=== PATIENT | male | born 1970 | race Two or more races ===

== ENCOUNTER 2024-08-31 19:02 | Inpatient (IN) | payer OTHER ==
[~2024-08-31] VITALS: Ht 185.4 cm; Wt 108.8 kg
[2024-08-31 20:27] LABS: Basophils # (auto) 0 10 ^3/uL (0-0.2); Basophils % (auto) 0.5 % (0.0-2.0); Eosinophils # (auto) 0.2 10 ^3/uL (0-0.8); Eosinophils % (auto) 3.1 % (0.0-7.0); Hematocrit 34.8 % (41.0-53.0); Hemoglobin 11.8 g/dL (13.5-17.5); Lymphocytes # (auto) 1.2 10 ^3/uL (0.4-5.4); Lymphocytes % (auto) 19.6 % (10.0-50.0); Mean Corpuscular Hemoglobin 29.3 pg (28.0-32.0); Mean Corpuscular Hgb Conc. 33.9 g/dL (32.0-36.0); Mean Corpuscular Volume 86.5 fL (80.0-100.0); Monocytes # (auto) 0.7 10 ^3/uL (0-1.3); Monocytes % (auto) 10.7 % (0.0-12.0); Neutrophils # (auto) 4.1 10 ^3/uL (1.6-8.6); Neutrophils % (auto) 66.1 % (37.0-80.0); Nucleated Red Blood Cells % 0.1 %; Platelet Count (auto) 269 10^3/uL (140-450); Red Blood Cells 4.03 10^6/uL (4.5-5.90); Red Cell Distribution Width 14.1 % (11.8-14.3); White Blood Cell 6.2 10^3/uL (4.4-10.8)
[2024-08-31 20:41] LABS: Alanine Aminotransferase 29 U/L (7-40); Albumin 4.4 g/dL (3.2-4.8); Alkaline Phosphatase 89 U/L (46-116); Anion Gap 7 (5-15); Aspartate Aminotransferase 19 U/L (13-40); BUN/Creatinine Ratio 17.2 (10.0-20.0); Bilirubin, Total 0.5 mg/dL (0.2-1.0); Blood Urea Nitrogen 21 mg/dL (9-23); Calcium 9.3 mg/dL (8.7-10.4); Carbon Dioxide 27 mmol/L (20-31); Potassium 4.3 mmol/L (3.5-5.1); Sodium 142 mmol/L (136-145); Total Protein 7.2 g/dL (5.7-8.2)
[2024-08-31 20:43] LABS: Chloride 108 mmol/L (98-107); Creatine Kinase IFCC 265 U/L (46-171); Glucose 257 mg/dL (74-106)
--- NOTE | 2024-08-31 20:44 | ED.PDOC ---
History of Present Illness HPI Comments 54 y/o M, with a history of DM, presents with c/o wound check, today. Patient endorses on having pain and swelling to his 1st and 3rd digit on her right foot for 1x month. He comments on recent amputation to 4th and 5th digit on his right foot at [facility] 2x months ago. He denies any recent injuries or skin contact exposure in addition to having any fever, chills, weakness, numbness, tingling, or other associated symptoms or modifiers at this time. Chief Complaint: Lower Extremity Time Seen by MD: 19:30 Reviewed Notes: Nurses Notes, Medications, Allergies Allergies: Coded Allergies: NO KNOWN ALLERGIES (Unverified , 08/31/24) Information Source: Patient Mode of Arrival: Ambulatory Severity: Moderate Timing: Months Duration: Since onset Prehospital treatment: None Past Medical History PAST MEDICAL HISTORY: DM, High Lipids, HTN Past Medical History (Other): obesity, peripheral neuropathy Surgical History: Denies all surgeries Family History Family History: Unknown Social History Smoker: Non-Smoker Alcohol: Denies ETOH Use Drugs: Denies Drug Use Lives In: Home Constitutional: reports: fatigue, fever; denies: chills, diaphoresis, malaise, sweats, weakness, others EENTM: denies: blurred vision, double vision, ear bleeding, ear discharge, ear drainage, ear pain, ear ringing, eye pain, eye redness, hearing loss, mouth pain, mouth swelling, nasal discharge, nose bleeding, nose congestion, nose pain, photophobia, tearing, throat pain, throat swelling, voice changes, others Respiratory: denies: cough, hemoptysis, orthopnea, SOB at rest, shortness of breath, SOB with excertion, stridor, wheezing, others Cardiovascular: denies: chest pain, dizzy spells, diaphoresis, Dyspnea on exertion, edema, irregular heart beat, left arm pain, lightheadedness, pal pitations, PND, syncope, others Gastrointestinal: denies: abdomen distended, abdominal pain, blood streaked bowels, constipated, diarrhea, dysphagia, difficulty swallowing, hematemesis, melena, nausea, poor appetite, poor fluid intake, rectal bleeding, rectal pain, vomiting, others Genitourinary: denies: burning, dysuria, flank pain, frequency, hematuria, incontinence, penile discharge, penile sore, pain, testicle pain, testicle swelling, urgency, others Neurological: denies: dizziness, fainting, headache, left sided numbness, left sided weakness, numbness, paresthesia, pre-existing deficit, right sided numbness, right sided weakness, seizure, speech problems, tingling, tremors, weakness, others Musculoskeletal: reports: others (pain and swelling to 1st and 3rd digit on right foot ); denies: back pain, gout, joint pain, joint swelling, muscle pain, muscle stiffness, neck pain Integumetry: reports: wounds (ulcer wound to 1st and 3rd digit on right foot ); denies: bruises, change in color, change in hair/nails, dryness, laceration, lesions, lumps, rash, others Allergic/Immunocompromised: denies: Difficulty Healing, Frequent Infections, Hives, Itching, others Hematologic/Lymphatic: denies: anemia, blood clots, easy bleeding, easy bruising, swollen glands, others Endocrine: denies: excessive hunger, excessive sweating, excessive thirst, excessive urination, flushing, intolerance to cold, intolerance to heat, unexplained weight gain, unexplained weight loss, others Psychiatric: denies: anxiety, bipolar disorder, depression, hopeless, panic disorder, schizophrenia, sleepless, suicidal, others All Other Systems: Reviewed and Negative (negative unless otherwise stated above or in HPI) Physical Exam General Appearance: No Apparent Distress, Obese HEENT: Normal ENT Inspection, Pharynx Normal, TMs Normal Neck: Full Range of Motion, Non-Tender, Normal, Normal Inspection Respiratory: Chest Non-Tender, Lungs Clear, No Accessory Muscle Use, No Respiratory Distress, Normal Breath Sounds Cardiovascular: No Edema, No JVD, No Murmur, No Gallop, Normal Peripheral Pulses, Regular Rate/Rhythm Breast Exam: Deferred Gastrointestinal: No Organomegaly, Non Tender, No Pulsatile Mass, Normal Bowel Sounds, Soft Genitalia: Deferred Pelvic: Deferred Rectal: Deferred Extremities: No calf tenderness, Normal capillary refill, Normal inspection, Normal range of motion, Non-tender, No pedal edema Musculoskeletal : Apperance: Normal Neurologic: Alert, conventional machinist II-XII nml as Tested, No Motor Deficits, Normal Affect, Normal Mood, No Sensory Deficits Cerebellar Function: Normal Reflexes: Normal Skin: Dry, Normal Color, Warm, Wounds (open ulcer wound with scant discharge to top portion of great and 3rd toe on right foot ) Lymphatic: No Adenopathy Was a procedure done? Was a procedure done?: No Differential Dx Considerations may include: cellulitis, dermatitis, post-op complication, osteomyelitis X-Ray, Labs, Meds, VS Vital Signs Date Time Temp Pulse Resp B/P (MAP) Pulse Ox O2 Delivery O2 Flow Rate FiO2 08/31/24 23:43 18 96 Room Air* 0 21 21 08/31/24 23:10 98.7 74 20 150/75 (100) 95 98.7 08/31/24 19:20 98.6 90 18 132/75 (94) 96 Lab Test 08/31/24 20:03 Range/Units White Blood Count 6.2 4.4-10.8 10^3/uL Red Blood Count 4.03 L 4.5-5.90 10^6/uL Hemoglobin 11.8 L 13.5-17.5 g/dL Hematocrit 34.8 L 41.0-53.0 % Mean Corpuscular Volume 86.5 80.0-100.0 fL Mean Corpuscular Hemoglobin 29.3 28.0-32.0 pg Mean Corpuscular Hemoglobin Concent 33.9 32.0-36.0 g/dL Red Cell Distribution Width 14.1 11.8-14.3 % Platelet Count 269 140-450 10^3/uL Mean Platelet Volume 7.1 6.9-10.8 fL Neutrophils (%) (Auto) 66.1 37.0-80.0 % Lymphocytes (%) (Auto) 19.6 10.0-50.0 % Monocytes (%) (Auto) 10.7 0.0-12.0 % Eosinophils (%) (Auto) 3.1 0.0-7.0 % Basophils (%) (Auto) 0.5 0.0-2.0 % Neutrophils # (Auto) 4.1 1.6-8.6 10 ^3/uL Lymphocytes # (Auto) 1.2 0.4-5.4 10 ^3/uL Monocytes # (Auto) 0.7 0-1.3 10 ^3/uL Eosinophils # (Auto) 0.2 0-0.8 10 ^3/uL Basophils # (Auto) 0 0-0.2 10 ^3/uL Nucleated Red Blood Cells 0.1 % Erythrocyte Sedimentation Rate 34 H 0-20 mm/hr Sodium Level 142 136-145 mmol/L Potassium Level 4.3 3.5-5.1 mmol/L Chloride Level 108 H 98-107 mmol/L Carbon Dioxide Level 27 20-31 mmol/L Anion Gap 7 5-15 Blood Urea Nitrogen 21 9-23 mg/dL Creatinine 1.22 0.700-1.30 mg/dL Glomerular Filtration Rate Calc 70 >90 mL/min BUN/Creatinine Ratio 17.2 10.0-20.0 Serum Glucose 257 H 74-106 mg/dL Calcium Level 9.3 8.7-10.4 mg/dL Total Bilirubin 0.5 0.2-1.0 mg/dL Aspartate Amino Transferase (AST) 19 13-40 U/L Alanine Aminotransferase (ALT) 29 7-40 U/L Alkaline Phosphatase 89 46-116 U/L Creatine Kinase 265 H 46-171 U/L Total Protein 7.2 5.7-8.2 g/dL Albumin 4.4 3.2-4.8 g/dL Current Medications Medications (Trade) Dose Ordered Sig/Tamiko Route Start Time Stop Time Status Last Admin Vancomycin HCl 250 ml @ 200 mls/hr ONCE ONCE IV 08/31/24 21:45 08/31/24 22:59 DC 08/31/24 23:29 X-Ray, Labs, Meds, VS Comment Patient to be admitted for cellulitis of the right foot. Concerned for possible osteomyelitis as it was bone degradation in the 1st and 3rd toe. Patient will be started on vancomycin and recommend podiatry consult tomorrow. I Laboratory: Labs reviewed and interpreted by this provider. Patient has prior medical visits reviewed. Med reconciliation performed Vital signs reviewed Time of 1ST Reevaluation: 20:00 Reevaluation 1ST: Unchanged Patient Education/Counseling: Diagnosis, Treatment Family Education/Counseling: No Family Present Departure 1 Departure Time of Disposition: 23:51 Impression: Primary Impression: Cellulitis of toe of right foot Disposition: ADMITTED INPATIENT Condition: Stable Discharged With: Self Critical Care Note Critical Care Time?: No Stability Stability form required: No Heart Score Heart Score: Heart Score Response (Comments) Value History N/A 0 EKG N/A 0 Age N/A 0 Risk Factors N/A 0 Troponin N/A 0 Total 0 I personally scribed for CARLOS ALBERTO LUND ([email or web address]) on 08/31/24 at 20:44. Electronically submitted by Taiwo Banegas ([email or web address]). CARLOS ALBERTO LUND Aug 31, 2024 20:44
[2024-08-31 21:34] LABS: Erythrocyte Sedimentation Rate 34 mm/hr (0-20)
--- NOTE | 2024-08-31 21:35 | DVH ---
EXAM: CT CT R FOOT WO CONTRAST INDICATION: WOUND EXAM DATE: 08/31/2024 08:19 PM COMPARISON: None TECHNIQUE: Multiple axial CT images of the right foot were obtained using bone algorithm. Axial and c oronal reformatting was done. Bone and soft tissue windows were reviewed. Radiation Dose Information: CT Dose: CTDI volume is 7.75 mGy. Dose-length product is 321.82 mGy*cm Findings/Impression: Limited evaluation given noncontrast technique. There is no evidence of an acute fracture, dislocation, blastic, or lytic lesions. Erosion of the 1st distal phalanx and focus of air in the 3rd PIP joint. Findings are nonspecific but could reflect an infectious etiology. Recommend a contrast enhanced MRI or nuclear medicine WBC scan for further evaluation. Transmetatarsectomy of the 4th and 5th digits. No radiopaque foreign bodies.
[2024-08-31] MEDS: VANCOMYCIN 1.25GM/250ML 250 ML IV ONE (23:29)
[2024-08-31 23:43] VITALS: RESP 18; O2SAT 96
[2024-09-01] MEDS ORDERED: ACETAMINOPHEN 325 MG TAB PO PRN (00:30)
[2024-09-01] MEDS ORDERED: VANCOMYCIN PER PHARMACY 0 MG IV SCH (00:30)
[2024-09-01] MEDS ORDERED: DEXTROSE (50%) 50ML SYRG IV PRN (00:30)
[2024-09-01] MEDS ORDERED: ONDANSETRON HCL 4 MG/2 ML VIAL IV PRN (00:30)
[2024-09-01] MEDS ORDERED: HYDROcodone-ACET 5/325MG TAB PO PRN (00:30)
[2024-09-01 02:18] VITALS: BP 145/77; PULSE 64; RESP 18; TEMP 97.7; O2SAT 100
--- NOTE | 2024-09-01 03:12 | DVHHP2 ---
History of Present Illness Reason for Visit: Right foot wound History of Present Illness 54-year-old male presents for evaluation of right foot wound. Patient reports a one month history of noticing swelling to his right foot great toe and 3rd toe. He states that over the past week he has noted an open wound at the tip of the great toe. Denies any trauma to the area. No fever or chills. No other acute complaints reported. Past Medical History Hypertension, dyslipidemia and diabetes mellitus Past Surgical History Right foot 4th and 5th toe amputation Family History Noncontributory Smoke: No ALCOHOL: none Drugs: None Lives: with Family Review of Systems Review of Systems Review of systems are currently negative otherwise addressed in HPI. Allergies: Coded Allergies: NO KNOWN ALLERGIES (Unverified , 08/31/24) Medications Current Medications Medications Dose Ordered Sig/Tamiko Route Start Time Stop Time Status Last Admin Dose Admin Vancomycin HCl 0 ml @ 0 mls/hr UD IV 09/01/24 00:30 UNV Ceftriaxone Sodium 50 ml @ 100 mls/hr DAILY@09 IV 09/01/24 09:00 Amlodipine Besylate 5 mg DAILY PO 09/01/24 10:00 Atorvastatin Calcium 10 mg HS PO 09/01/24 22:00 Empaglifozin 10 mg DAILY PO 09/01/24 10:00 Gabapentin 300 mg TID PO 09/01/24 06:00 Diagnostic Test (Pha) 1 strip Q6HR 09/01/24 06:00 Insulin Human Regular Q6HR SC 09/01/24 06:00 Dextrose 50 ml UD PRN IV 09/01/24 00:30 Acetaminophen/ Hydrocodone Bitart 1 tab Q4HP PRN PO 09/01/24 00:30 Ondansetron HCl 4 mg Q4HP PRN IV 09/01/24 00:30 Acetaminophen 650 mg Q6HP PRN PO 09/01/24 00:30 Exam Vital Signs Vital Signs Date Time Temp Pulse Resp B/P (MAP) Pulse Ox O2 Delivery O2 Flow Rate FiO2 08/31/24 23:43 18 96 Room Air* 0 21 21 08/31/24 23:10 98.7 74 150/75 (100) 98.7 Exam Gen: 54-year-old male in mild distress Skin: Warm, dry, normal color and texture, no rash. HEENT: Normocephalic atraumatic, mucous membranes moist and pink. Neck: Cervical and supraclavicular nodes normal without enlargement, trachea is midline, thyroid gland is normal without masses. Pulmonary: Clear to auscultation and percussion bilaterally. Cardiac: Regular rate and rhythm. No murmur Abdomen: Soft, nontender, nondistended, bowel sounds present all 4 quadrants, no guarding, no rigidity, no organomegaly. Extremities: No cyanosis, clubbing, right flank great toe ulcer Neuro: Cranial nerves II through XII grossly intact, normal affect and speech, no focal motor deficits. Labs/Xrays ORDERING PHYSICIAN: CARLOS ALBERTO LUND PROCEDURE(s): RFTCT - CT R FOOT WO CONTRAST REASON: WOUND ORDER NUMBER(s): [id number], ACCESSION NUMBER(s): [id number] EXAM: CT CT R FOOT WO CONTRAST INDICATION: WOUND EXAM DATE: 08/31/2024 08:19 PM COMPARISON: None TECHNIQUE: Multiple axial CT images of the right foot were obtained using bone algorithm. Axial and coronal reformatting was done. Bone and soft tissue windows were reviewed. Radiation Dose Information: CT Dose: CTDI volume is 7.75 mGy. Dose-length product is 321.82 mGy*cm Findings/Impression: Limited evaluation given noncontrast technique. There is no evidence of an acute fracture, dislocation, blastic, or lytic lesions. Erosion of the 1st distal phalanx and focus of air in the 3rd PIP joint. Findings are nonspecific but could reflect an infectious etiology. Recommend a contrast enhanced MRI or nuclear medicine WBC scan for further evaluation. Transmetatarsectomy of the 4th and 5th digits. No radiopaque foreign bodies. Labs Test 08/31/24 20:03 Range/Units White Blood Count 6.2 4.4-10.8 10^3/uL Red Blood Count 4.03 L 4.5-5.90 10^6/uL Hemoglobin 11.8 L 13.5-17.5 g/dL Hematocrit 34.8 L 41.0-53.0 % Mean Corpuscular Volume 86.5 80.0-100.0 fL Mean Corpuscular Hemoglobin 29.3 28.0-32.0 pg Mean Corpuscular Hemoglobin Concent 33.9 32.0-36.0 g/dL Red Cell Distribution Width 14.1 11.8-14.3 % Platelet Count 269 140-450 10^3/uL Mean Platelet Volume 7.1 6.9-10.8 fL Neutrophils (%) (Auto) 66.1 37.0-80.0 % Lymphocytes (%) (Auto) 19.6 10.0-50.0 % Monocytes (%) (Auto) 10.7 0.0-12.0 % Eosinophils (%) (Auto) 3.1 0.0-7.0 % Basophils (%) (Auto) 0.5 0.0-2.0 % Neutrophils # (Auto) 4.1 1.6-8.6 10 ^3/uL Lymphocytes # (Auto) 1.2 0.4-5.4 10 ^3/uL Monocytes # (Auto) 0.7 0-1.3 10 ^3/uL Eosinophils # (Auto) 0.2 0-0.8 10 ^3/uL Basophils # (Auto) 0 0-0.2 10 ^3/uL Nucleated Red Blood Cells 0.1 % Erythrocyte Sedimentation Rate 34 H 0-20 mm/hr Sodium Level 142 136-145 mmol/L Potassium Level 4.3 3.5-5.1 mmol/L Chloride Level 108 H 98-107 mmol/L Carbon Dioxide Level 27 20-31 mmol/L Anion Gap 7 5-15 Blood Urea Nitrogen 21 9-23 mg/dL Creatinine 1.22 0.700-1.30 mg/dL Glomerular Filtration Rate Calc 70 >90 mL/min BUN/Creatinine Ratio 17.2 10.0-20.0 Serum Glucose 257 H 74-106 mg/dL Calcium Level 9.3 8.7-10.4 mg/dL Total Bilirubin 0.5 0.2-1.0 mg/dL Aspartate Amino Transferase (AST) 19 13-40 U/L Alanine Aminotransferase (ALT) 29 7-40 U/L Alkaline Phosphatase 89 46-116 U/L Creatine Kinase 265 H 46-171 U/L Total Protein 7.2 5.7-8.2 g/dL Albumin 4.4 3.2-4.8 g/dL Assessment/Plan Assessment/Plan Assessment Right foot diabetic ulcer Uncontrolled diabetes mellitus Hypertension Plan Admit the patient to [facility] to the hospitalist Rocephin/vancomycin Podiatry consult Resume home medications Continue treatment per orders. Plan discussed with: Patient My Orders Orders - DONTAE CALI Procedure Category Date Status Time *Podiatry Consult CONS 09/01/24 Transmitted Erika/Trini 00:23 Vancomycin Per PHA 09/01/24 Pending Pharmacy 00:30 Ceftriaxone 1gm/50ml PHA 09/01/24 In Process D5w (Rocephin) 09:00 Amlodipine Tablet PHA 09/01/24 In Process (Norvasc Tablet) 10:00 Atorvastatin (Lipitor) PHA 09/01/24 In Process 22:00 Empagliflozin PHA 09/01/24 In Process (Jardiance) 10:00 Gabapentin Capsule PHA 09/01/24 In Process (Neurontin Capsule) 06:00 Consistent DIET 09/01/24 Transmitted Carb(Ccho)Diabetes Breakfast Glucose Blood PHA 09/01/24 In Process (Accu-Chek Comfort 06:00 Insulin R (Human) PHA 09/01/24 In Process (Insulin R) 06:00 Dextrose 50% Syringe PHA 09/01/24 In Process 00:30 Admit ADMIT 09/01/24 Transmitted 00:23 Hydrocodone-Acet PHA 09/01/24 In Process 5/325mg Tab (Toluca 00:30 Ondansetron Hcl PHA 09/01/24 In Process (Zofran) 00:30 Complete Blood Count LAB 09/02/24 Verified 04:00 Condition: Stable KAREL 09/01/24 In Process 00:23 Acetaminophen Tablet PHA 09/01/24 In Process (Tylenol Tablet) 00:30 Bedrest With Bathroom KAREL 09/01/24 In Process Privileg 00:23 Basic Metabolic Panel LAB 09/02/24 Verified 04:00 Date of Service: Sep 01, 2024 Billing Provider: DONTAE CALI Common Visit Codes: [id number] INP/OBS CARE (HIGH) DONTAE CALI Sep 01, 2024 03:12
[2024-09-01] MEDS: GABAPENTIN 300 MG CAP PO SCH (05:48)
[2024-09-01] MEDS: InsuLIN REG 1unit/0.01ml Soln (100units/ml) SC SCH (05:59)
[2024-09-01] MEDS: ACCU-CHEK COMFORT CURVE STRIP VI SCH (06:02)
[2024-09-01 08:42] LABS: Basophils # (auto) 0 10 ^3/uL (0-0.2); Basophils % (auto) 0.6 % (0.0-2.0); Eosinophils # (auto) 0.3 10 ^3/uL (0-0.8); Eosinophils % (auto) 5.4 % (0.0-7.0); Hematocrit 37.4 % (41.0-53.0); Hemoglobin 12.1 g/dL (13.5-17.5); Lymphocytes # (auto) 1.4 10 ^3/uL (0.4-5.4); Lymphocytes % (auto) 24.2 % (10.0-50.0); Mean Corpuscular Hemoglobin 28.2 pg (28.0-32.0); Mean Corpuscular Hgb Conc. 32.2 g/dL (32.0-36.0); Mean Corpuscular Volume 87.4 fL (80.0-100.0); Monocytes # (auto) 0.7 10 ^3/uL (0-1.3); Monocytes % (auto) 12.5 % (0.0-12.0); Neutrophils # (auto) 3.3 10 ^3/uL (1.6-8.6); Neutrophils % (auto) 57.3 % (37.0-80.0); Nucleated Red Blood Cells % 0.1 %; Platelet Count (auto) 253 10^3/uL (140-450); Red Blood Cells 4.29 10^6/uL (4.5-5.90); Red Cell Distribution Width 13.8 % (11.8-14.3); White Blood Cell 5.8 10^3/uL (4.4-10.8)
[2024-09-01 08:53] VITALS: BP 125/71; PULSE 66; RESP 16; TEMP 97.9; O2SAT 99
[2024-09-01 08:56] LABS: INR 1.06 (0.9-1.15); Partial Thromboplastin Time 27.3 SEC (24.5-34.5); Prothrombin Time 11.2 sec (9.3-11.8)
[2024-09-01 09:00] LABS: Alanine Aminotransferase 16 U/L (7-40); Alkaline Phosphatase 79 U/L (46-116); Anion Gap 5 (5-15); BUN/Creatinine Ratio 18.6 (10.0-20.0); Blood Urea Nitrogen 18 mg/dL (9-23); Calcium 9.1 mg/dL (8.7-10.4); Carbon Dioxide 28 mmol/L (20-31); Potassium 3.9 mmol/L (3.5-5.1); Sodium 141 mmol/L (136-145)
[2024-09-01] MEDS ORDERED: cefTRIAXone 1GM/50ML D5W 50 ML IV SCH (09:00)
[2024-09-01] MEDS: PIPERACILLIN-TAZOB 3.375GM 100 ML IV ONE (09:00)
[2024-09-01 09:01] LABS: Albumin 4.3 g/dL (3.2-4.8)
[2024-09-01 09:02] LABS: Bilirubin, Total 0.5 mg/dL (0.2-1.0); Total Protein 6.9 g/dL (5.7-8.2)
[2024-09-01 09:22] LABS: Aspartate Aminotransferase 13 U/L (13-40); Chloride 108 mmol/L (98-107); Glucose 184 mg/dL (74-106); Phosphorus 2.2 mg/dL (2.4-5.1)
[2024-09-01] MEDS: EMPAGLIFLOZIN 10 MG TAB PO SCH (09:40)
[2024-09-01] MEDS: amLODIPine BESYLATE 5 MG TAB PO SCH (09:40)
[2024-09-01] MEDS: VANCOMYCIN 1GM/250ML KIT 250 ML IV ONE (10:00)
--- NOTE | 2024-09-01 12:07 | DVH ---
Bilateral Lower Extremity Arterial Duplex Date: 09/01/2024 10:09 AM Clinical History: Rule out PAD Comparison: None Findings: Duplex Doppler evaluation including color Doppler and spectral/pulsed waveform analysis of the lower extremity arteries was performed. Velocities and waveforms within normal limits. IMPRESSION: There is no evidence for peripheral vascular insufficiency in the right lower extremity. There is no evidence for peripheral vascular insufficiency in the left lower extremity. No significant focal stenosis is identified. END IMPRESSION:
[2024-09-01 13:01] VITALS: BP 121/62; PULSE 63; RESP 12; TEMP 97.5; O2SAT 99
--- NOTE | 2024-09-01 13:51 | DVH ---
CLINICAL HISTORY: Rule out osteomyelitis. Wound. Infection. TECHNIQUE: Multi sequence multi planar MRI images of the right midfoot and forefoot were obtained wi thout IV contrast. COMPARISON: CT CT R FOOT WO CONTRAST on DOS: 08/31/24 FINDINGS: Postsurgical changes of prior amputations of the 4th and 5th metatarsals. Prominent subcut aneous edema in the great toe, suspected cellulitis in the appropriate clinical setting. There is mar row edema involving the entire distal phalanx of the great toe with bony destructive changes, suspect ed osteomyelitis in the setting of overlying soft tissue infection. No marrow signal abnormality seen in the proximal phalanx of the great toe. No organized fluid collection identified to suggest absces s, although limited evaluation for abscess on noncontrast enhanced exam. There are chronic appearing bony destructive changes of the 3rd metatarsal head and neck region and b ase of the proximal phalanx of the 3rd digit with hammertoe deformity of the 3rd digit. There is a wo und at the plantar aspect of the 3rd MTP joint without evidence for adjacent osteomyelitis. There is a wound at the dorsal aspect of the 3rd digit PIP joint with associated subcutaneous edema, likely c ellulitis. There is marrow edema in the distal aspect of the proximal phalanx, suspected osteomyeliti s. Possible marrow edema in the base of the middle phalanx of the 3rd digit, for which osteomyelitis is not excluded. Moderate arthritic changes of the 2nd MTP joint. IMPRESSION: 1. Suspected osteomyelitis in the distal phalanx of the great toe as described above. 2. Suspected osteomyelitis in the distal aspect of the proximal phalanx of the 3rd digit and possible osteomyelitis of the base of the middle phalanx of the 3rd digit. 3. Soft tissue inflammatory changes seen of the great toe and 3rd digit as described above, likely ce llulitis, without visualized focal fluid collection identified to suggest abscess, although limited e valuation for abscess noncontrast enhanced exam. 4. Additional findings as detailed above.
--- NOTE | 2024-09-01 14:27 | DVHINCON2 ---
Date Seen: Sep 01, 2024 Reason for Consultation Right foot wound History of Present Illness 54-year-old male presents for evaluation of right foot wound. Patient reports a one month history of noticing swelling to his right foot great toe and 3rd toe. He states that over the past week he has noted an open wound at the tip of the great toe. Denies any trauma to the area. No fever or chills. No other acute complaints reported. Past Medical History See H&P Past Surgical History See H&P Allergies: Coded Allergies: NO KNOWN ALLERGIES (Unverified , 08/31/24) Current Medications Current Medications Medications (Trade) Dose Ordered Sig/Tamiko Route PRN Reason Start Time Stop Time Status Last Admin Vancomycin HCl 0 ml @ 0 mls/hr UD IV 09/01/24 00:30 Ceftriaxone Sodium 50 ml @ 100 mls/hr DAILY@09 IV 09/01/24 09:00 09/01/24 08:59 DC Amlodipine Besylate (Norvasc Tablet) 5 mg DAILY PO 09/01/24 10:00 09/01/24 09:40 Atorvastatin Calcium (Lipitor) 10 mg HS PO 09/01/24 22:00 Empaglifozin (Jardiance) 10 mg DAILY PO 09/01/24 10:00 09/01/24 09:40 Gabapentin (Neurontin Capsule) 300 mg TID PO 09/01/24 06:00 09/01/24 05:48 Diagnostic Test (Pha) (Accu-Chek Comfort Curve T) 1 strip Q6HR 09/01/24 06:00 09/01/24 06:02 Insulin Human Regular (InsuLIN R) Q6HR SC 09/01/24 06:00 09/01/24 05:59 Dextrose 50 ml UD PRN IV Blood Sugar LESS THAN 60 09/01/24 00:30 Acetaminophen/ Hydrocodone Bitart (Alder 5/325MG Tab) 1 tab Q4HP PRN PO MODERATE PAIN (4-6 PAIN SCALE) 09/01/24 00:30 Ondansetron HCl (Zofran) 4 mg Q4HP PRN IV NAUSEA / VOMITING 09/01/24 00:30 Acetaminophen (Tylenol Tablet) 650 mg Q6HP PRN PO PAIN SCALE 1-3 OR TEMP>100.4 09/01/24 00:30 Piperacillin Sod/ Tazobactam Sod 100 ml @ 25 mls/hr Q8HR IV 09/01/24 17:00 Vancomycin HCl 250 ml @ 250 mls/hr Q8H IV 09/01/24 18:00 Vital Signs Vital Signs Date Time Temp Pulse Resp B/P (MAP) Pulse Ox O2 Delivery O2 Flow Rate FiO2 09/01/24 13:01 97.5 63 12 121/62 (81) 99 97.5 09/01/24 02:18 Room Air* 0 21 Physical Exam DERMATOLOGIC EXAM: - Skin is dry and cool to the touch dry bilaterally. - Nails 1-5 of the bilateral foot are thickened, discolored, dystrophic, and tender to palpate with subungual debris - Hair loss noted to bilateral feet - the right 3rd and hallux wound with fibrosis and cellulitis and drainage VASCULAR EXAM: - DP and PT pulses are palpable bilaterally. - CANE WEIGHER is brisk to all digits. - Feet are cool to touch compared to lower legs bilaterally. NEUROLOGIC EXAM: - Normal light touch sensation to the superficial peroneal, deep peroneal, sural, saphenous, and tibial nerve branches. - Protective sensation is diminished as tested with a 5.07 10g [place]-Faiza bilaterally. MUSCULOSKELETAL EXAM: - No gross deformities - Muscle strength is 5/5 and active motion is pain-free and symmetrical bilaterally - No pain or crepitation with passive range of motion bilaterally to all major pedal joints Labs/Diagnostic Data Labs Test 09/01/24 08:26 09/01/24 05:51 08/31/24 20:03 Range/Units White Blood Count 5.8 4.4-10.8 10^3/uL Red Blood Count 4.29 L 4.5-5.90 10^6/uL Hemoglobin 12.1 L 13.5-17.5 g/dL Hematocrit 37.4 L 41.0-53.0 % Mean Corpuscular Volume 87.4 80.0-100.0 fL Mean Corpuscular Hemoglobin 28.2 28.0-32.0 pg Mean Corpuscular Hemoglobin Concent 32.2 32.0-36.0 g/dL Red Cell Distribution Width 13.8 11.8-14.3 % Platelet Count 253 140-450 10^3/uL Mean Platelet Volume 6.7 L 6.9-10.8 fL Neutrophils (%) (Auto) 57.3 37.0-80.0 % Lymphocytes (%) (Auto) 24.2 10.0-50.0 % Monocytes (%) (Auto) 12.5 H 0.0-12.0 % Eosinophils (%) (Auto) 5.4 0.0-7.0 % Basophils (%) (Auto) 0.6 0.0-2.0 % Neutrophils # (Auto) 3.3 1.6-8.6 10 ^3/uL Lymphocytes # (Auto) 1.4 0.4-5.4 10 ^3/uL Monocytes # (Auto) 0.7 0-1.3 10 ^3/uL Eosinophils # (Auto) 0.3 0-0.8 10 ^3/uL Basophils # (Auto) 0 0-0.2 10 ^3/uL Nucleated Red Blood Cells 0.1 % Prothrombin Time 11.2 9.3-11.8 sec Prothrombin Time INR 1.06 0.9-1.15 Activated Partial Thromboplast Time 27.3 24.5-34.5 SEC Sodium Level 141 136-145 mmol/L Potassium Level 3.9 3.5-5.1 mmol/L Chloride Level 108 H 98-107 mmol/L Carbon Dioxide Level 28 20-31 mmol/L Anion Gap 5 5-15 Blood Urea Nitrogen 18 9-23 mg/dL Creatinine 0.97 0.700-1.30 mg/dL Glomerular Filtration Rate Calc 92 >90 mL/min BUN/Creatinine Ratio 18.6 10.0-20.0 Serum Glucose 184 H 74-106 mg/dL Hemoglobin A1c 6.3 H <5.7 % A1C Lactic Acid Level 1.3 0.4-2.0 mmol/L Calcium Level 9.1 8.7-10.4 mg/dL Phosphorus Level 2.2 L 2.4-5.1 mg/dL Magnesium Level 2.0 1.6-2.6 mg/dL Total Bilirubin 0.5 0.2-1.0 mg/dL Aspartate Amino Transferase (AST) 13 13-40 U/L Alanine Aminotransferase (ALT) 16 7-40 U/L Alkaline Phosphatase 79 46-116 U/L Creatine Kinase 228 H 46-171 U/L Total Protein 6.9 5.7-8.2 g/dL Albumin 4.3 3.2-4.8 g/dL Thyroid Stimulating Hormone (TSH) 1.59 0.55-4.78 uIU/mL POC Glucose 224 H 70-106 mg/dl Erythrocyte Sedimentation Rate 34 H 0-20 mm/hr Microbiology Date/Time Source Procedure Growth Status 08/31/24 20:00 Foot Gram Stain - Final Resulted 08/31/24 20:00 Foot Wound Culture Pending Resulted Problems(with codes): (1) Osteomyelitis of toe (2) Diabetic foot ulcer (3) Cellulitis of toe of right foot Plan/Recommendation ASSESSMENT: Patient is a 54 year old seen on the floor for a worsening ulcer PLAN: - The patients chart was reviewed, clinical findings were discussed with the patient, the etiologies of the conditions were discussed in detail, and a treatment plan was agreed to at this time, with both oral and written instructions provided. - reviewed advanced imaging - discussed plan is to perform an incision and drainage - patient will be NPO at midnight - take him to the OR tomorrow - we will get cultures in the OR - patient will need 6 weeks of IV antibiotics to keep the toes - can weightbear as tolerated in postoperative shoe All questions were answered and concerns addressed to the patient's satisfaction. The patient was given the phone number to the clinic and was told how to make contact with the clinic should any concerns or questions arise. Patient understands that if any questions or concerns arise prior to the next appointment, we should be contacted immediately. FOLLOW-UP: Continue to follow while inpatient Plan discussed with: Patient Date of Service: Sep 01, 2024 Billing Provider: LV GALVAN DPM Common Visit Codes: CONSULT ONLY Consultation Codes: [id number] CONSULT <80MIN LV GALVAN DPM Sep 01, 2024 14:27
[2024-09-01 15:32] LABS: Urine Bacteria None Seen /hpf (None Seen)
[2024-09-01 15:48] LABS: Urine Blood Negative /uL (Negative); Urine Clarity Clear (Clear); Urine Color Light-Yellow (Yellow); Urine Protein, UAD Negative (Negative); Urine Specific Gravity 1.029 (1.001-1.035); Urine Squamous Epithelial Cell None Seen /hpf (<5); Urine Urobilinogen Normal (Negative); Urine WBC < 1 /HPF (0-3)
[2024-09-01 16:01] LABS: Amphetamine Screen, Urine Neg (NEGATIVE); Barbiturate Scree,Urine Neg (NEGATIVE); Benzodiazephine Screen, Urine Neg (NEGATIVE); Cannabinoid Screen, Urine Neg (NEGATIVE); Cocaine Screen, Urine Neg (NEGATIVE); Opiate Scree,Urine Neg (NEGATIVE); Phencyclidine Screen, Urine Neg (NEGATIVE)
--- NOTE | 2024-09-01 16:15 | DVHPNRES ---
Progress Note Date Seen: Sep 01, 2024 Resident Creating Document: LAW ZAMBRANO RESIDENT Medical Necessity Reason Pt with a Central, PICC or Fol: No Subjective Review of Systems Salvador Jean-Baptiste 54-year-old male patient who presents to the ED for evaluation of right foot nonhealing wound which has occurred approximately three months ago, getting worse, associating with swelling and pain. Patient reports right foot 5th and 4th toe amputation approximately three months ago. Denies fever, chills, syncope, palpitation, trauma, nausea, vomiting, diarrhea, constipation, dysuria, recent travel, sick contacts and motor or sensory deficits. 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 Denies current tobacco, alcohol and other drug abuse Allergies: Denies Home medication: Empagliflozin 10 mg p.o. daily, aspirin 81 mg p.o. daily, atorvastatin 10 mg p.o. daily, losartan 25 mg p.o. daily Patient seen and examined at bedside. Continuous complaining of right leg swelling and mild pain of right foot. Has no other complaints. Objective vital signs Vital Sign Date Time Temp Pulse Resp B/P (MAP) Pulse Ox O2 Delivery O2 Flow Rate FiO2 09/01/24 13:01 97.5 63 12 121/62 (81) 99 97.5 09/01/24 02:18 Room Air* 0 21 Total Intake and Output 08/31/24 08/31/24 09/01/24 15:00 23:00 07:00 Intake Total 236 ml Balance 236 ml medications Current Medications Medications Dose Ordered Sig/Tamiko Route Start Time Stop Time Status Last Admin Dose Admin Vancomycin HCl 0 ml @ 0 mls/hr UD IV 09/01/24 00:30 Amlodipine Besylate 5 mg DAILY PO 09/01/24 10:00 09/01/24 09:40 5 MG Atorvastatin Calcium 10 mg HS PO 09/01/24 22:00 Empaglifozin 10 mg DAILY PO 09/01/24 10:00 09/01/24 09:40 10 MG Gabapentin 300 mg TID PO 09/01/24 06:00 09/01/24 05:48 300 MG Diagnostic Test (Pha) 1 strip Q6HR 09/01/24 06:00 09/01/24 06:02 1 STRIP Insulin Human Regular Q6HR SC 09/01/24 06:00 09/01/24 05:59 4 UNITS Dextrose 50 ml UD PRN IV 09/01/24 00:30 Acetaminophen/ Hydrocodone Bitart 1 tab Q4HP PRN PO 09/01/24 00:30 Ondansetron HCl 4 mg Q4HP PRN IV 09/01/24 00:30 Acetaminophen 650 mg Q6HP PRN PO 09/01/24 00:30 Piperacillin Sod/ Tazobactam Sod 100 ml @ 25 mls/hr Q8H IV 09/01/24 19:00 Vancomycin HCl 250 ml @ 250 mls/hr Q8H IV 09/01/24 18:00 Examination Patient lying in bed, in no acute distress General: Lucid, afebrile, mucosae are moist Cardiovascular: Normal S1 and S2. No murmurs, gallops or rubs Respiratory: Normal ventilation mechanics. Clear lung sounds on auscultation Abdomen: Soft, nontender, no organomegaly, normal bowel sounds MSK/skin: Mobilizes 4 limbs. Skin is dry and warm. She was surgical site on right foot of 4th and 5th toe amputation with no fluctuating mass, does present erythema. Necrotic ulcer and dorsum of hallux and 3rd toe. Presents weak pulses of right pedal and posterior tibial artery, rest of pulses within normal limits. Bilateral feet are warm to touch. Neurological: Oriented in 3 spheres. No motor no sensitive deficits. Pupils are isocoric and reactive laboratory and microbiology Laboratory Tests 09/01/24 08:26 Test 09/01/24 08:26 Range/Units Serum Glucose 184 H 74-106 mg/dL Microbiology Date/Time Source Procedure Growth Status 08/31/24 20:00 Foot Gram Stain - Final Resulted 08/31/24 20:00 Foot Wound Culture Pending Resulted Problem List/Assessment/Plan Problem List/Assessment/Plan # Diabetic foot complicated with osteomyelitis of 1st and 3rd right toe Completed CT and MRI of right foot, there is evidence of osteomyelitis in hallux and 3rd toe, also cellulitis. Podiatry on board: Planning to complete surgery on 09/02/2024, patient will need six weeks of IV antibiotics after surgery. Can weightbear as tolerated in postoperative shoe. We will obtain cultures from surgical sample Currently under empiric IV antibiotic (vancomycin and Zosyn) Obtain cultures (blood and wound), negative at the moment, pending final result. # Cellulitis of right foot Currently under empiric IV antibiotic (vancomycin and Zosyn) Obtain cultures (blood and wound), negative at the moment, pending final result. # Diabetes - controlled (hemoglobin A1c 6.3%) # Ruled out peripheral artery disease Completed lower limb ultrasound which ruled out PAD Patient is currently on atorvastatin and aspirin, we will continue home medication # Hypertension Continue home medication (losartan 25 mg p.o. daily) # Dyslipidemia Continue home medication (atorvastatin 10 mg p.o. daily) Goals of care discussed with patient for over 18 minutes: Full code status Discussed plan with Dr. Amado, patient and nurses: Currently patient is under empiric IV antibiotic. Podiatry evaluated the patient recommended surgery for 09/02/2024, we will obtain surgical sample for culture, and then adjust antibiotic regimen. Plan discussed with: Patient, Other (Nurses) My Orders My Orders Orders - LAW ZAMBRANO RESIDENT Procedure Category Date Status Time Drug Screen LAB 09/01/24 In Process 08:12 Mri R Foot Wo Contrast MRI 09/01/24 Resulted 08:14 Bilat Low Ext Art US 09/01/24 Resulted Duplex 08:14 Piperacillin-Tazob PHA 09/01/24 In Process 3.375gm (Zosyn 3.375g 19:00 *Podiatry Consult CONS 09/01/24 Transmitted Shahana([facility]) 14:04 Date of Service: Sep 01, 2024 Billing Provider: XIOMARA RESTREPO MD Common Visit Codes: [id number] INP/OBS CARE(HIGH) LAW ZAMBRANO RESIDENT Sep 01, 2024 16:15 XIOMARA RESTREPO MD Sep 07, 2024 15:51
[2024-09-01 17:13] VITALS: BP 127/74; PULSE 61; RESP 17; TEMP 98; O2SAT 100
[2024-09-01] MEDS: VANCOMYCIN 1GM/250ML KIT 250 ML IV SCH (18:12)
[2024-09-01] MEDS: PIPERACILLIN-TAZOB 3.375GM 100 ML IV SCH (19:00)
[2024-09-01] MEDS: POTASSIUM PHOSPHATE 22 MEQ in SODIUM CHL 0.9% 100 ML IV ONE (19:20)
[2024-09-01 21:00] VITALS: BP 149/79; PULSE 62; RESP 20; TEMP 97.5; O2SAT 100
[2024-09-01] MEDS: ATORVASTATIN 20 MG TAB PO SCH (21:40)
[2024-09-02] VITALS (9 sets, daily range): BP systolic 127–140; BP diastolic 71–80; PULSE 60–81; RESP 1–20; TEMP 97.6–98.7; O2SAT 93–100
[2024-09-02] MEDS: VANCOMYCIN 1GM/250ML KIT 250 ML IV SCH (04:05)
[2024-09-02 06:45] LABS: Basophils # (auto) 0 10 ^3/uL (0-0.2); Basophils % (auto) 0.7 % (0.0-2.0); Eosinophils # (auto) 0.3 10 ^3/uL (0-0.8); Eosinophils % (auto) 5.1 % (0.0-7.0); Hematocrit 36.1 % (41.0-53.0); Hemoglobin 11.7 g/dL (13.5-17.5); Lymphocytes # (auto) 1.6 10 ^3/uL (0.4-5.4); Lymphocytes % (auto) 27.2 % (10.0-50.0); Mean Corpuscular Hemoglobin 28.4 pg (28.0-32.0); Mean Corpuscular Hgb Conc. 32.6 g/dL (32.0-36.0); Mean Corpuscular Volume 87.4 fL (80.0-100.0); Monocytes # (auto) 0.7 10 ^3/uL (0-1.3); Monocytes % (auto) 11.5 % (0.0-12.0); Neutrophils # (auto) 3.3 10 ^3/uL (1.6-8.6); Neutrophils % (auto) 55.5 % (37.0-80.0); Nucleated Red Blood Cells % 0.1 %; Platelet Count (auto) 236 10^3/uL (140-450); Red Blood Cells 4.13 10^6/uL (4.5-5.90)
[2024-09-02 06:50] LABS: Potassium 3.7 mmol/L (3.5-5.1); Sodium 142 mmol/L (136-145)
[2024-09-02 06:51] LABS: Anion Gap 9 (5-15); Carbon Dioxide 25 mmol/L (20-31)
[2024-09-02 06:53] LABS: Chloride 108 mmol/L (98-107)
[2024-09-02 06:56] LABS: Glucose 99 mg/dL (74-106)
[2024-09-02 06:57] LABS: BUN/Creatinine Ratio 14.1 (10.0-20.0); Blood Urea Nitrogen 13 mg/dL (9-23)
[2024-09-02] MEDS: ASPirin 81 mg TAB PO SCH (10:00)
[2024-09-02] MEDS: LOSARTAN POTASSIUM 25 MG TAB PO SCH (10:07)
[2024-09-02] MEDS ORDERED: MEPERIDINE HCL (25 MG/ML) 1ML VIAL ONE (10:52)
[2024-09-02] MEDS ORDERED: MIDAZOLAM HCL 2MG/2ML 2ml VIAL (1mg/ml) ONE ×2 (10:52→11:46)
[2024-09-02] MEDS ORDERED: fentaNYL CITRATE 100 MCG/2 ML VL ONE ×2 (10:52→11:45)
[2024-09-02] MEDS: BUPIVACAINE 0.5% MPF INJ 30ML SDV IJ ONE (11:21)
[2024-09-02] MEDS ORDERED: DexAMETHasone SOD PHOS 10MG/1ML VIAL INJ ONE ×2 (11:40→11:46)
[2024-09-02] MEDS ORDERED: PROPOFOL 10 MG/ML 20 ML IV ONE ×2 (11:40→11:46)
--- NOTE | 2024-09-02 11:45 | DVHOP2 ---
Operative Report - 2 Report Details Date: 09/02/24 Preop Diagnosis: 1. Right foot third osteomyelitis 2. Right foot first osteomyelitis 3. Right foot diabetic ulcer 4. Right foot cellulitis 5. Right foot abscess Postop Diagnosis: Same as preop Surgeon: Lv Galvan MD Anesthesiologist: See anesthesia Anesthesia: Mac Consent: The patient was informed of the risks and benefits of the procedure. These include but are not limited to complications of anesthesia, postoperative infection, incomplete relief of symptoms, recurrence of symptoms, damage to blood vessels, nerves and tendons, deep venous thrombosis, pulmonary embolism and possible need for repeat surgery in the future. Complications: None Estimated Blood Loss: Minimal Fluids: See anesthesia Findings: Consistent with diagnosis Indications for Surgery: Worsening right foot wound Name of Procedure Performed 1. Right foot I&D to bone 3rd proximal phalanx (30629) 2. Right foot I&D to bone 1st proximal phalanx () 2. Right foot bone biopsy 3rd proximal phalanx () 3. Right foot bone biopsy 1st proximal phalanx () 4. Right foot 3rd toe flexor tenotomy (01591) 5. Right foot 1st toe flexor tenotomy (94244) 6. Right foot delayed closure (49160) Procedure Details Procedure Details: PRE-PROCEDURE INFORMATION: In the pre-op holding area, the extremity to be operated on was clearly marked and the patient verified correct laterality of the marking. The patient was transferred to the OR table and placed in a supine position. A timeout was performed in which identification of the correct patient, procedure, location, and materials was done. The right foot and leg were prepped and draped in normal sterile fashion. DESCRIPTION OF PROCEDURE: Attention was directed to the right 3rd toe where area of fluctuance was noted. An incision was made over this area and was deepened through blunt dissection. The incision was deepened to the level of abscess and bone. Care was taken to the dissection to avoid any neurovascular and tendinous structures. The incision was deepened to the bone, and the abscess appeared to be purulent fluid consistent with pus. The cortices of the bone was then removed with Wenceslao an all necrotic tissue. After the abscess was drained, the area was irrigated with 3 L normal saline using cysto tubing. Deep cultures were then obtained from the wound. A bone biopsy was then taken of the right proximal phalanx which was deepened to the muscle belly and tendons. The bone was then sent to pathology to determine the extent of osteomyelitis. The area was then inspected and any areas of tracking, especially along the tendons were also drained. A delayed closure was then performed using 2-0 nylon after was deemed appropriate with no longer concern for infection. Attention was directed to the right 1st toe where area of fluctuance was noted. An incision was made over this area and was deepened through blunt dissection. The incision was deepened to the level of abscess and bone. Care was taken to the dissection to avoid any neurovascular and tendinous structures. The incis ion was deepened to the bone, and the abscess appeared to be purulent fluid consistent with pus. The cortices of the bone was then removed with Wenceslao an all necrotic tissue. After the abscess was drained, the area was irrigated with 3 L normal saline using cysto tubing. Deep cultures were then obtained from the wound. The area was then inspected and any areas of tracking, especially along the tendons were also drained. A bone biopsy was then taken of the right 1st proximal phalanx which was deepened to the muscle belly and tendons. The bone was then sent to pathology to determine the extent of osteomyelitis. A delayed closure was then performed using 2-0 nylon after was deemed appropriate with no longer concern for infection. All surgical wounds were irrigated copiously with saline and closed in layers with the aforementioned suture material. A dry sterile dressing was placed on the surgical extremity. The patient was placed in a postop shoe POSTOPERATIVE INFORMATION: The patient tolerated the above noted procedure and anesthesia well and was transferred to the PACU with vital signs stable, and vascular status intact with capillary refill intact to all digits. Deep cultures were taken in the wounds were closed at this point. Would recommend that we send the patient home on 3 weeks of p.o. antibiotics vs 6 weeks IV antibiotics. The patient being transient would be okay if we did p.o. patient can be weight-bearing as tolerated in a postop shoe Specimen: Right 3rd proximal phalanx and 1st proximal phalanx Condition Good Disposition Still a Patient LV GALVAN DPM Sep 02, 2024 11:45
[2024-09-02] MEDS ORDERED: ONDANSETRON HCL 4 MG/2 ML VIAL ONE (11:46)
[2024-09-02] MEDS ORDERED: ePHEDrine SULFATE 50 MG/ML AMP ONE (11:46)
[2024-09-02] MEDS ORDERED: GLYCOPYRROLATE 0.2 MG/ML 1ML VIAL ONE (11:46)
[2024-09-02] MEDS ORDERED: LIDOCAINE 2% (LOCAL ANESTH.) PF 5ml SDV ONE (11:46)
--- NOTE | 2024-09-02 19:26 | DVHPNRES ---
Progress Note Date Seen: Sep 02, 2024 Resident Creating Document: LAW ZAMBRANO RESIDENT Medical Necessity Reason Pt with a Central, PICC or Fol: No Subjective Review of Systems Salvador Jean-Baptiste 54-year-old male patient who presents to the ED for evaluation of right foot nonhealing wound which has occurred approximately three months ago, getting worse, associating with swelling and pain. Patient reports right foot 5th and 4th toe amputation approximately three months ago. Denies fever, chills, syncope, palpitation, trauma, nausea, vomiting, diarrhea, constipation, dysuria, recent travel, sick contacts and motor or sensory deficits. 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 Denies current tobacco, alcohol and other drug abuse Allergies: Denies Home medication: Empagliflozin 10 mg p.o. daily, aspirin 81 mg p.o. daily, atorvastatin 10 mg p.o. daily, losartan 25 mg p.o. daily Patient seen and examined at bedside. He was seen during the a.m., patient was complaining of mild foot pain, pain management helping control his pain. Awaiting for surgery today. Objective vital signs Vital Sign Date Time Temp Pulse Resp B/P (MAP) Pulse Ox O2 Delivery O2 Flow Rate FiO2 09/02/24 16:54 98.7 81 1 131/71 (91) 98 98.7 09/02/24 11:58 Room Air 0 09/02/24 11:58 100 Total Intake and Output 09/01/24 09/01/24 09/02/24 15:00 23:00 07:00 Intake Total 250 ml Output Total 0 ml Balance 250 ml medications Current Medications Medications Dose Ordered Sig/Tamiko Route Start Time Stop Time Status Last Admin Dose Admin Vancomycin HCl 0 ml @ 0 mls/hr UD IV 09/01/24 00:30 Amlodipine Besylate 5 mg DAILY PO 09/01/24 10:00 09/02/24 10:07 5 MG Atorvastatin Calcium 10 mg HS PO 09/01/24 22:00 09/01/24 21:40 10 MG Empaglifozin 10 mg DAILY PO 09/01/24 10:00 09/01/24 09:40 10 MG Gabapentin 300 mg TID PO 09/01/24 06:00 09/02/24 13:58 300 MG Diagnostic Test (Pha) 1 strip Q6HR 09/01/24 06:00 09/02/24 17:33 1 STRIP Insulin Human Regular Q6HR SC 09/01/24 06:00 09/02/24 17:34 3 UNITS Dextrose 50 ml UD PRN IV 09/01/24 00:30 Acetaminophen/ Hydrocodone Bitart 1 tab Q4HP PRN PO 09/01/24 00:30 Ondansetron HCl 4 mg Q4HP PRN IV 09/01/24 00:30 Acetaminophen 650 mg Q6HP PRN PO 09/01/24 00:30 Piperacillin Sod/ Tazobactam Sod 100 ml @ 25 mls/hr Q8H IV 09/01/24 19:00 09/02/24 14:00 25 MLS/HR Aspirin 81 mg DAILY PO 09/02/24 10:00 Losartan Potassium 25 mg DAILY PO 09/02/24 10:00 09/02/24 10:07 25 MG Vancomycin HCl 250 ml @ 250 mls/hr Q8H IV 09/02/24 04:00 09/02/24 12:29 250 MLS/HR Examination Patient was examined before surgery today Patient lying in bed, in no acute distress General: Lucid, afebrile, mucosae are moist Cardiovascular: Normal S1 and S2. No murmurs, gallops or rubs Respiratory: Normal ventilation mechanics. Clear lung sounds on auscultation Abdomen: Soft, nontender, no organomegaly, normal bowel sounds MSK/skin: Mobilizes 4 limbs. Skin is dry and warm. She was surgical site on right foot of 4th and 5th toe amputation with no fluctuating mass, does present erythema. Necrotic ulcer and dorsum of hallux and 3rd toe. Presents weak pulses of right pedal and posterior tibial artery, rest of pulses within normal limits. Bilateral feet are warm to touch. Neurological: Oriented in 3 spheres. No motor no sensitive deficits. Pupils are isocoric and reactive laboratory and microbiology Laboratory Tests 09/02/24 05:24 Test 09/02/24 05:24 Range/Units Serum Glucose 99 74-106 mg/dL Microbiology Date/Time Source Procedure Growth Status 08/31/24 20:03 Blood Blood Culture - Preliminary NO GROWTH AFTER 24 HOURS OF INCUBATION. Resulted 08/31/24 20:00 Foot Gram Stain - Final Resulted 08/31/24 20:00 Foot Wound Culture - Preliminary Resulted Problem List/Assessment/Plan Problem List/Assessment/Plan # Diabetic foot complicated with osteomyelitis of 1st and 3rd right toe Completed CT and MRI of right foot, there is evidence of osteomyelitis in hallux and 3rd toe, also cellulitis. Podiatry on board: Planning to complete surgery on 09/02/2024, patient will need six weeks of IV antibiotics after surgery. Can weightbear as tolerated in postoperative shoe. We will obtain cultures from surgical sample Currently under empiric IV antibiotic (vancomycin and Zosyn) Obtain cultures (blood and wound), negative at the moment, pending final result. # Cellulitis of right foot Currently under empiric IV antibiotic (vancomycin and Zosyn) Obtain cultures (blood and wound), negative at the moment, pending final result. # Diabetes - controlled (hemoglobin A1c 6.3%) # Ruled out peripheral artery disease Completed lower limb ultrasound which ruled out PAD Patient is currently on atorvastatin and aspirin, we will continue home medication # Hypertension Continue home medication (losartan 25 mg p.o. daily) # Dyslipidemia Continue home medication (atorvastatin 10 mg p.o. daily) Goals of care discussed with patient for over 18 minutes: Full code status Discussed plan with Dr. Amado, patient and nurses: Currently patient is under empiric IV antibiotic. Podiatry evaluated the patient recommended surgery for 09/02/2024, we will obtain surgical sample for culture, and then adjust antibiotic regimen. Plan discussed with: Patient, Other (Nurses) My Orders My Orders Orders - LAW ZAMBRANO RESIDENT Procedure Category Date Status Time * Wound Consult CONS 09/02/24 Transmitted * Examination Proctor CONS 09/02/24 Transmitted Consult * Dietary Consult CONS 09/02/24 Transmitted 07:11 Consistent DIET 09/02/24 Transmitted Carb(Ccho)Diabetes Lunch Dietary Evaluation Review Comments: 1. Change diet order to CCH0 75 gm/meal, High-Protein to meet est. needs 2. Continue ss insulin, frequent BG checks for glycemic control 3. Suggest oral nutrition supplements (Ensure HP BID, provides 160 kcal, 16 gm pro/carton) to optimize pts nutritional status 4. Ask CM to provide list of resources in pt's preferred geographic area to increase food access (food leal etc.) Expected Outcomes/Goals: Improved nutritional status, wound healing, weight maintenance Date of Service: Sep 02, 2024 Billing Provider: XIOMARA RESTREPO MD Common Visit Codes: [id number] INP/OBS CARE(HIGH) LAW ZAMBRANO RESIDENT Sep 02, 2024 19:26 XIOMARA RESTREPO MD Sep 07, 2024 15:52
[2024-09-03 01:00] VITALS: BP 136/70; PULSE 63; RESP 17; TEMP 97.9; O2SAT 98
[2024-09-03 05:00] VITALS: BP 138/84; PULSE 69; RESP 17; TEMP 97.9; O2SAT 97
[2024-09-03 05:09] LABS: Basophils # (auto) 0 10 ^3/uL (0-0.2); Basophils % (auto) 0.1 % (0.0-2.0); Eosinophils # (auto) 0 10 ^3/uL (0-0.8); Eosinophils % (auto) 0.1 % (0.0-7.0); Hematocrit 37.7 % (41.0-53.0); Hemoglobin 12.5 g/dL (13.5-17.5); Lymphocytes # (auto) 0.8 10 ^3/uL (0.4-5.4); Lymphocytes % (auto) 9.7 % (10.0-50.0); Mean Corpuscular Hemoglobin 28.8 pg (28.0-32.0); Mean Corpuscular Hgb Conc. 33.3 g/dL (32.0-36.0); Mean Corpuscular Volume 86.7 fL (80.0-100.0); Monocytes # (auto) 0.7 10 ^3/uL (0-1.3); Monocytes % (auto) 8.6 % (0.0-12.0); Neutrophils # (auto) 6.6 10 ^3/uL (1.6-8.6); Neutrophils % (auto) 81.5 % (37.0-80.0); Platelet Count (auto) 271 10^3/uL (140-450); Red Blood Cells 4.35 10^6/uL (4.5-5.90); Red Cell Distribution Width 13.9 % (11.8-14.3); White Blood Cell 8.1 10^3/uL (4.4-10.8)
[2024-09-03 05:19] LABS: Anion Gap 10 (5-15); Calcium 9.8 mg/dL (8.7-10.4); Carbon Dioxide 25 mmol/L (20-31); Chloride 106 mmol/L (98-107); Potassium 3.8 mmol/L (3.5-5.1); Sodium 141 mmol/L (136-145)
[2024-09-03 05:24] LABS: Creatine Kinase IFCC 100 U/L (46-171)
[2024-09-03 05:25] LABS: BUN/Creatinine Ratio 19.8 (10.0-20.0); Blood Urea Nitrogen 19 mg/dL (9-23); Magnesium 2.1 mg/dL (1.6-2.6)
[2024-09-03 05:26] LABS: Phosphorus 3.1 mg/dL (2.4-5.1)
[2024-09-03 05:40] LABS: Glucose 118 mg/dL (74-106)
[2024-09-03 09:00] VITALS: BP 130/68; PULSE 66; RESP 16; TEMP 97.8; O2SAT 98
[2024-09-03 13:00] VITALS: BP 140/79; PULSE 58; RESP 16; TEMP 98.3; O2SAT 99
--- NOTE | 2024-09-03 14:12 | DVHPN2 ---
Subjective 54-year-old male presents for evaluation of right foot wound. Patient reports a one month history of noticing swelling to his right foot great toe and 3rd toe. He states that over the past week he has noted an open wound at the tip of the great toe. Denies any trauma to the area. No fever or chills. No other acute complaints reported. Changes from previous H/P or p: No Changes Objective Vitals Vital Signs Date Time Temp Pulse Resp B/P (MAP) Pulse Ox O2 Delivery O2 Flow Rate FiO2 09/03/24 13:00 98.3 58 16 140/79 (99) 99 98.3 09/03/24 08:10 Room Air* 0 21 Intake/Output Intake and Output 09/03/24 07:00 Intake Total 2250 ml Output Total 600 ml Balance 1650 ml Intake Oral 1800 ml IV Total 450 ml Output Urine Total 600 ml # Voids 4 # Bowel Movements 2 Exam DERMATOLOGIC EXAM: - Skin is dry and cool to the touch dry bilaterally. - Nails 1-5 of the bilateral foot are thickened, discolored, dystrophic, and tender to palpate with subungual debris - Hair loss noted to bilateral feet - the right 3rd and hallux wound with fibrosis and cellulitis and drainage VASCULAR EXAM: - DP and PT pulses are palpable bilaterally. - NETWORK ASSOCIATE is brisk to all digits. - Feet are cool to touch compared to lower legs bilaterally. NEUROLOGIC EXAM: - Normal light touch sensation to the superficial peroneal, deep peroneal, sural, saphenous, and tibial nerve branches. - Protective sensation is diminished as tested with a 5.07 10g [place] bilaterally. MUSCULOSKELETAL EXAM: - No gross deformities - Muscle strength is 5/5 and active motion is pain-free and symmetrical bilaterally - No pain or crepitation with passive range of motion bilaterally to all major pedal joints Medications Current Medications Medications Dose Ordered Sig/Tamiko Route Start Time Stop Time Status Last Admin Dose Admin Vancomycin HCl 0 ml @ 0 mls/hr UD IV 09/01/24 00:30 Amlodipine Besylate 5 mg DAILY PO 09/01/24 10:00 09/03/24 10:13 5 MG Atorvastatin Calcium 10 mg HS PO 09/01/24 22:00 09/02/24 21:35 10 MG Empaglifozin 10 mg DAILY PO 09/01/24 10:00 09/03/24 10:13 10 MG Gabapentin 300 mg TID PO 09/01/24 06:00 09/03/24 05:32 300 MG Diagnostic Test (Pha) 1 strip Q6HR 09/01/24 06:00 09/03/24 12:00 1 STRIP Insulin Human Regular Q6HR SC 09/01/24 06:00 09/02/24 21:52 6 UNITS Dextrose 50 ml UD PRN IV 09/01/24 00:30 Acetaminophen/ Hydrocodone Bitart 1 tab Q4HP PRN PO 09/01/24 00:30 Ondansetron HCl 4 mg Q4HP PRN IV 09/01/24 00:30 Acetaminophen 650 mg Q6HP PRN PO 09/01/24 00:30 Piperacillin Sod/ Tazobactam Sod 100 ml @ 25 mls/hr Q8H IV 09/01/24 19:00 09/03/24 10:12 25 MLS/HR Aspirin 81 mg DAILY PO 09/02/24 10:00 09/03/24 10:13 81 MG Losartan Potassium 25 mg DAILY PO 09/02/24 10:00 09/03/24 10:14 25 MG Vancomycin HCl 250 ml @ 250 mls/hr Q8H IV 09/02/24 04:00 09/03/24 03:43 250 MLS/HR Enoxaparin Sodium 40 mg DAILY SC 09/03/24 10:00 Laboratory Results Laboratory Tests 09/03/24 04:39 Chemistry Test 09/03/24 04:39 Calcium Level 9.8 mg/dL (8.7-10.4) Magnesium Level 2.1 mg/dL (1.6-2.6) Phosphorus Level 3.1 mg/dL (2.4-5.1) Urinalysis Test 09/01/24 15:17 Urine Color Light-yellow (Yellow) Urine Clarity Clear (Clear) Urine pH 5.0 (5.0-9.0) Urine Specific [place] 1.029 (1.001-1.035) Urine Protein Negative (Negative) Urine Ketones Negative (Negative) Urine Blood Negative /uL (Negative) Urine Nitrite Negative (Negative) Urine Bilirubin Negative (Negative) Urine Urobilinogen Normal mg/dL (Negative) Urine Leukocyte Esterase Negative /uL (Negative) Urine RBC 1 /hpf (0 - 3) Urine Microscopic WBC < 1 /HPF (0-3) Urine Squamous Epithelial Cells None seen /hpf (<5) Urine Bacteria None seen /hpf (None Seen) Urine Glucose 4+ mg/dL (Normal) H Microbiology Microbiology Date/Time Source Procedure Growth Status 09/02/24 11:52 Foot Right Gram Stain - Final Resulted 09/02/24 11:52 Foot Right Anaerobic Culture - Preliminary Resulted 09/02/24 11:52 Foot Right Aerobic Culture - Preliminary Resulted 08/31/24 20:03 Blood Blood Culture - Preliminary NO GROWTH AFTER 48 HOURS OF INCUBATION. Resulted Assessment/Plan Assessment/Plan ASSESSMENT: Patient is a 54-year-old seen on the floor 1 day postop s/p from right foot I&D PLAN: - The patients chart was reviewed, clinical findings were discussed with the patient, the etiologies of the conditions were discussed in detail, and a treatment plan was agreed to at this time, with both oral and written instructions provided. - discussed with the patient that surgery went well and we are able to perform the tenotomy and close the wounds - recommend patient does get IV antibiotics for 6 weeks - cultures and pathology pending - can change the dressings with Xeroform Betadine-soaked gauze ABD and Braeden bandage - we will follow up with me in 1 week All questions were answered and concerns addressed to the patient's satisfaction. The patient was given the phone number to the clinic and was told how to make contact with the clinic should any concerns or questions arise. Patient understands that if any questions or concerns arise prior to the next appointment, we should be contacted immediately. FOLLOW-UP: Continue to follow while inpatient Plan discussed with: Patient Problem List: (1) Cellulitis of toe of right foot (2) Diabetic foot ulcer (3) Osteomyelitis of toe Date of Service: Sep 03, 2024 Billing Provider: LV GALVAN DPM Common Visit Codes: [id number] INP/OBS CARE(MOD) LV GALVAN DPM Sep 03, 2024 14:12
[2024-09-03] MEDS: ENOXAPARIN SOD 40 MG/0.4 ML SYRINGE SC SCH (14:23)
[2024-09-03 17:00] VITALS: BP 134/93; PULSE 56; RESP 16; TEMP 97.6; O2SAT 100
--- NOTE | 2024-09-03 17:22 | DVHPNRES ---
Progress Note Date Seen: Sep 03, 2024 Resident Creating Document: LAW ZAMBRANO RESIDENT Medical Necessity Reason Pt with a Central, PICC or Fol: No Subjective Review of Systems Salvador Jean-Baptiste 54-year-old male patient who presents to the ED for evaluation of right foot nonhealing wound which has occurred approximately three months ago, getting worse, associating with swelling and pain. Patient reports right foot 5th and 4th toe amputation approximately three months ago. Denies fever, chills, syncope, palpitation, trauma, nausea, vomiting, diarrhea, constipation, dysuria, recent travel, sick contacts and motor or sensory deficits. 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 Denies current tobacco, alcohol and other drug abuse Allergies: Denies Home medication: Empagliflozin 10 mg p.o. daily, aspirin 81 mg p.o. daily, atorvastatin 10 mg p.o. daily, losartan 25 mg p.o. daily Patient seen and examined at bedside. Currently status postop (incision and drainage done on 09/02/2024). He is complaining of mild pain in surgical site. Objective vital signs Vital Sign Date Time Temp Pulse Resp B/P (MAP) Pulse Ox O2 Delivery O2 Flow Rate FiO2 09/03/24 13:00 98.3 58 16 140/79 (99) 99 98.3 09/03/24 08:10 Room Air* 0 21 Total Intake and Output 09/02/24 09/02/24 09/03/24 15:00 23:00 07:00 Intake Total 350 ml 400 ml 1500 ml Output Total 600 ml Balance 350 ml -200 ml 1500 ml medications Current Medications Medications Dose Ordered Sig/Tamiko Route Start Time Stop Time Status Last Admin Dose Admin Vancomycin HCl 0 ml @ 0 mls/hr UD IV 09/01/24 00:30 Amlodipine Besylate 5 mg DAILY PO 09/01/24 10:00 09/03/24 10:13 5 MG Atorvastatin Calcium 10 mg HS PO 09/01/24 22:00 09/02/24 21:35 10 MG Empaglifozin 10 mg DAILY PO 09/01/24 10:00 09/03/24 10:13 10 MG Gabapentin 300 mg TID PO 09/01/24 06:00 09/03/24 14:23 300 MG Diagnostic Test (Pha) 1 strip Q6HR 09/01/24 06:00 09/03/24 16:57 1 STRIP Insulin Human Regular Q6HR SC 09/01/24 06:00 09/02/24 21:52 6 UNITS Dextrose 50 ml UD PRN IV 09/01/24 00:30 Acetaminophen/ Hydrocodone Bitart 1 tab Q4HP PRN PO 09/01/24 00:30 Ondansetron HCl 4 mg Q4HP PRN IV 09/01/24 00:30 Acetaminophen 650 mg Q6HP PRN PO 09/01/24 00:30 Piperacillin Sod/ Tazobactam Sod 100 ml @ 25 mls/hr Q8H IV 09/01/24 19:00 09/03/24 10:12 25 MLS/HR Aspirin 81 mg DAILY PO 09/02/24 10:00 09/03/24 10:13 81 MG Losartan Potassium 25 mg DAILY PO 09/02/24 10:00 09/03/24 10:14 25 MG Vancomycin HCl 250 ml @ 250 mls/hr Q8H IV 09/02/24 04:00 09/03/24 14:23 250 MLS/HR Enoxaparin Sodium 40 mg DAILY SC 09/03/24 10:00 09/03/24 14:23 40 MG Examination Patient lying in bed, in no acute distress General: Lucid, afebrile, mucosae are moist Cardiovascular: Normal S1 and S2. No murmurs, gallops or rubs Respiratory: Normal ventilation mechanics. Clear lung sounds on auscultation Abdomen: Soft, nontender, no organomegaly, normal bowel sounds MSK/skin: Mobilizes 4 limbs. Skin is dry and warm. Surgical site on right foot of 4th and 5th toe amputation with no fluctuating mass, does present erythema. Third and 5th toe of right foot under gauze, no active bleeding, no foul smell.. Presents weak pulses of right pedal and posterior tibial artery, rest of pulses within normal limits. Bilateral feet are warm to touch. Neurological: Oriented in 3 spheres. No motor no sensitive deficits. Pupils are isocoric and reactive laboratory and microbiology Laboratory Tests 09/03/24 04:39 Test 09/03/24 04:39 Range/Units Serum Glucose 118 H 74-106 mg/dL Microbiology Date/Time Source Procedure Growth Status 09/02/24 11:52 Foot Right Gram Stain - Final Resulted 09/02/24 11:52 Foot Right Anaerobic Culture - Preliminary Resulted 09/02/24 11:52 Foot Right Aerobic Culture - Preliminary Resulted 08/31/24 20:03 Blood Blood Culture - Preliminary NO GROWTH AFTER 48 HOURS OF INCUBATION. Resulted Problem List/Assessment/Plan Problem List/Assessment/Plan # Diabetic foot complicated with osteomyelitis of 1st and 3rd right toe - status post incision and drainage Completed CT and MRI of right foot, there is evidence of osteomyelitis in hallux and 3rd toe, also cellulitis. Podiatry on board: Completed surgery on 09/02/2024, patient will need six weeks of IV antibiotics versus p.o. antibiotics, awaiting results of surgical culture. Can weightbear as tolerated in postoperative shoe. We will obtain cultures from surgical sample Currently under empiric IV antibiotic (vancomycin and Zosyn) Obtain cultures (blood and wound), negative at the moment, pending final result. # Cellulitis of right foot Currently under empiric IV antibiotic (vancomycin and Zosyn) Obtain cultures (blood and wound), negative at the moment, pending final result. # Diabetes - controlled (hemoglobin A1c 6.3%) On insulin sliding scale # Ruled out peripheral artery disease Completed lower limb ultrasound which ruled out PAD Patient is currently on atorvastatin and aspirin, we will continue home medication # Hypertension Continue home medication (losartan 25 mg p.o. daily) # Dyslipidemia Continue home medication (atorvastatin 10 mg p.o. daily) Goals of care discussed with patient for over 18 minutes: Full code status Discussed plan with Dr. Amado, patient and nurses: Currently patient is under empiric IV antibiotic. Podiatry on board, completed surgery (incision and drainage) on 09/02/2024, awaiting surgical culture, and then adjust antibiotic regimen. Plan discussed with: Patient, Other (Nurses) My Orders My Orders Orders - LAW ZAMBRANO RESIDENT Procedure Category Date Status Time Pt Request For Service PT 09/03/24 Logged 09:02 Enoxaparin Sodium PHA 09/03/24 In Process (Lovenox) 10:00 Dietary Evaluation Review Comments: 1. Change diet order to CCH0 75 gm/meal, High-Protein to meet est. needs 2. Continue ss insulin, frequent BG checks for glycemic control 3. Suggest oral nutrition supplements (Ensure HP BID, provides 160 kcal, 16 gm pro/carton) to optimize pts nutritional status 4. Ask CM to provide list of resources in pt's preferred geographic area to increase food access (food leal etc.) Expected Outcomes/Goals: Improved nutritional status, wound healing, weight maintenance Date of Service: Sep 03, 2024 Billing Provider: XIOMARA RESTREPO MD Common Visit Codes: [id number] INP/OBS CARE(HIGH) LAW ZAMBRANO RESIDENT Sep 03, 2024 17:22 XIOMARA RESTREPO MD Sep 07, 2024 15:54
[2024-09-03 20:00] VITALS: BP 113/62; PULSE 59; RESP 17; TEMP 98.7
[2024-09-04 00:51] VITALS: BP 142/72; PULSE 61; RESP 19; TEMP 98.5; O2SAT 98
[2024-09-04 05:17] VITALS: BP 135/73; PULSE 60; RESP 18; TEMP 98.4; O2SAT 97
--- NOTE | 2024-09-04 06:23 | DVHPNRES ---
Progress Note Date Seen: Sep 04, 2024 Resident Creating Document: LAW ZAMBRANO RESIDENT Medical Necessity Reason Pt with a Central, PICC or Fol: No Subjective Review of Systems Salvador Jean-Baptiste 54-year-old male patient who presents to the ED for evaluation of right foot nonhealing wound which has occurred approximately three months ago, getting worse, associating with swelling and pain. Patient reports right foot 5th and 4th toe amputation approximately three months ago. Denies fever, chills, syncope, palpitation, trauma, nausea, vomiting, diarrhea, constipation, dysuria, recent travel, sick contacts and motor or sensory deficits. Past Medical History: Hypertension, dyslipidemia, diabetes mellitus, diabetic foot status post amputation of right 5th and 4th toe Surgical history: Right foot 4th and 5th toe amputation Family History: Noncontributory Social history: Patient is currently homeless, has no next of kin and no [id number]-um-[id number]. Denies current tobacco, alcohol and other drug abuse Allergies: Denies Home medication: Empagliflozin 10 mg p.o. daily, aspirin 81 mg p.o. daily, atorvastatin 10 mg p.o. daily, losartan 25 mg p.o. daily Patient seen and examined at bedside. Currently status postop (incision and drainage done on 09/02/2024). He is complaining of mild pain in surgical site. Ordered PICC line placement to complete IV antibiotics for six weeks Objective vital signs Vital Sign Date Time Temp Pulse Resp B/P (MAP) Pulse Ox O2 Delivery O2 Flow Rate FiO2 09/04/24 05:17 98.4 60 18 135/73 (93) 97 98.4 09/03/24 20:00 Room Air* 0 21 Total Intake and Output 09/03/24 09/03/24 09/04/24 15:00 23:00 07:00 Intake Total 1200 ml 1200 ml Balance 1200 ml 1200 ml medications Current Medications Medications Dose Ordered Sig/Tamiko Route Start Time Stop Time Status Last Admin Dose Admin Vancomycin HCl 0 ml @ 0 mls/hr UD IV 09/01/24 00:30 Amlodipine Besylate 5 mg DAILY PO 09/01/24 10:00 09/03/24 10:13 5 MG Atorvastatin Calcium 10 mg HS PO 09/01/24 22:00 09/03/24 22:21 10 MG Empaglifozin 10 mg DAILY PO 09/01/24 10:00 09/03/24 10:13 10 MG Gabapentin 300 mg TID PO 09/01/24 06:00 09/03/24 22:21 300 MG Diagnostic Test (Pha) 1 strip Q6HR 09/01/24 06:00 09/04/24 00:29 1 STRIP Insulin Human Regular Q6HR SC 09/01/24 06:00 09/02/24 21:52 6 UNITS Dextrose 50 ml UD PRN IV 09/01/24 00:30 Acetaminophen/ Hydrocodone Bitart 1 tab Q4HP PRN PO 09/01/24 00:30 Ondansetron HCl 4 mg Q4HP PRN IV 09/01/24 00:30 Acetaminophen 650 mg Q6HP PRN PO 09/01/24 00:30 Piperacillin Sod/ Tazobactam Sod 100 ml @ 25 mls/hr Q8H IV 09/01/24 19:00 09/04/24 03:26 25 MLS/HR Aspirin 81 mg DAILY PO 09/02/24 10:00 09/03/24 10:13 81 MG Losartan Potassium 25 mg DAILY PO 09/02/24 10:00 09/03/24 10:14 25 MG Vancomycin HCl 250 ml @ 250 mls/hr Q8H IV 09/02/24 04:00 09/04/24 03:45 250 MLS/HR Enoxaparin Sodium 40 mg DAILY SC 09/03/24 10:00 09/03/24 14:23 40 MG Examination Patient lying in bed, in no acute distress General: Lucid, afebrile, mucosae are moist Cardiovascular: Normal S1 and S2. No murmurs, gallops or rubs Respiratory: Normal ventilation mechanics. Clear lung sounds on auscultation Abdomen: Soft, nontender, no organomegaly, normal bowel sounds MSK/skin: Mobilizes 4 limbs. Skin is dry and warm. Surgical site on right foot of 4th and 5th toe amputation with no fluctuating mass, does present erythema. Third and first toe of right foot under gauze, no active bleeding, no foul smell, surgical site clean. Presents weak pulses of right pedal and posterior tibial artery, rest of pulses within normal limits. Bilateral feet are warm to touch. Neurological: Oriented in 3 spheres. No motor no sensitive deficits. Pupils are isocoric and reactive laboratory and microbiology Laboratory Tests 09/03/24 04:39 Test 09/03/24 04:39 Range/Units Serum Glucose 118 H 74-106 mg/dL Microbiology Date/Time Source Procedure Growth Status 09/02/24 11:52 Foot Right Gram Stain - Final Resulted 09/02/24 11:52 Foot Right Anaerobic Culture - Preliminary Resulted 09/02/24 11:52 Foot Right Aerobic Culture - Preliminary Resulted 08/31/24 20:03 Blood Blood Culture - Preliminary NO GROWTH AFTER 72 HOURS OF INCUBATION. Resulted Problem List/Assessment/Plan Problem List/Assessment/Plan # Diabetic foot complicated with osteomyelitis of 1st and 3rd right toe - status post incision and drainage Completed CT and MRI of right foot, there is evidence of osteomyelitis in hallux and 3rd toe, also cellulitis. Podiatry on board: Completed surgery on 09/02/2024, patient will need six weeks of IV antibiotics, awaiting results of surgical culture. Can weightbear as tolerated in postoperative shoe. We will obtain cultures from surgical sample Currently under empiric IV antibiotic (vancomycin and Zosyn) Obtain cultures (blood and wound), negative at the moment, pending final result. PT on board coordinator cardiopulmonary services on board to evaluate SNF vs home health to complete IV antibiotics. # Cellulitis of right foot Currently under empiric IV antibiotic (vancomycin and Zosyn) Obtain cultures (blood and wound), negative at the moment, pending final result. # Diabetes - controlled (hemoglobin A1c 6.3%) On insulin sliding scale # Ruled out peripheral artery disease Completed lower limb ultrasound which ruled out PAD Patient is currently on atorvastatin and aspirin, we will continue home medication # Hypertension Continue home medication (losartan 25 mg p.o. daily) # Dyslipidemia Continue home medication (atorvastatin 10 mg p.o. daily) Goals of care discussed with patient for over 18 minutes: Full code status Discussed plan with Dr. Amado, patient and nurses: Currently patient is under empiric IV antibiotic. Podiatry on board, completed surgery (incision and drainage) on 09/02/2024, awaiting surgical culture, and then adjust antibiotic regimen. Ordered PICC line to complete IV antibiotics for 6 weeks Plan discussed with: Patient, Other (Nurses) My Orders My Orders Orders - LAW ZAMBRANO RESIDENT Procedure Category Date Status Time Pt Request For Service PT 09/03/24 Logged 09:02 Enoxaparin Sodium PHA 09/03/24 In Process (Lovenox) 10:00 Basic Metabolic Panel LAB 09/04/24 Logged 04:00 Dietary Evaluation Review Comments: 1. Change diet order to CCH0 75 gm/meal, High-Protein to meet est. needs 2. Continue ss insulin, frequent BG checks for glycemic control 3. Suggest oral nutrition supplements (Ensure HP BID, provides 160 kcal, 16 gm pro/carton) to optimize pts nutritional status 4. Ask CM to provide list of resources in pt's preferred geographic area to increase food access (food leal etc.) Expected Outcomes/Goals: Improved nutritional status, wound healing, weight maintenance Date of Service: Sep 04, 2024 Billing Provider: XIOMARA RESTREPO MD Common Visit Codes: [id number] INP/OBS CARE(HIGH) LAW ZAMBRANO RESIDENT Sep 04, 2024 06:23 XIOMARA RESTREPO MD Sep 07, 2024 16:03
[2024-09-04 07:44] LABS: Basophils # (auto) 0 10 ^3/uL (0-0.2); Basophils % (auto) 0.5 % (0.0-2.0); Eosinophils # (auto) 0.2 10 ^3/uL (0-0.8); Eosinophils % (auto) 3.1 % (0.0-7.0); Hematocrit 36.2 % (41.0-53.0); Lymphocytes # (auto) 2.2 10 ^3/uL (0.4-5.4); Lymphocytes % (auto) 30.6 % (10.0-50.0); Mean Corpuscular Hemoglobin 28.8 pg (28.0-32.0); Mean Corpuscular Hgb Conc. 33.2 g/dL (32.0-36.0); Mean Corpuscular Volume 86.6 fL (80.0-100.0); Monocytes # (auto) 0.7 10 ^3/uL (0-1.3); Monocytes % (auto) 10.2 % (0.0-12.0); Neutrophils # (auto) 4.1 10 ^3/uL (1.6-8.6); Neutrophils % (auto) 55.6 % (37.0-80.0); Platelet Count (auto) 249 10^3/uL (140-450); Red Blood Cells 4.18 10^6/uL (4.5-5.90); Red Cell Distribution Width 14.1 % (11.8-14.3); White Blood Cell 7.3 10^3/uL (4.4-10.8)
[2024-09-04 08:02] LABS: Anion Gap 10 (5-15); Carbon Dioxide 27 mmol/L (20-31); Chloride 106 mmol/L (98-107); Potassium 3.8 mmol/L (3.5-5.1); Sodium 143 mmol/L (136-145)
[2024-09-04 08:03] LABS: Calcium 9.3 mg/dL (8.7-10.4)
[2024-09-04] MEDS: VANCOMYCIN HCL 1000 MG VL ONE (08:03)
[2024-09-04 08:08] LABS: Blood Urea Nitrogen 15 mg/dL (9-23); Glucose 94 mg/dL (74-106)
[2024-09-04 09:00] VITALS: BP 164/83; PULSE 61; RESP 17; TEMP 97.8; O2SAT 94
[2024-09-04 13:00] VITALS: BP 135/80; PULSE 64; RESP 17; TEMP 98; O2SAT 98
[2024-09-04 17:00] VITALS: BP 118/61; PULSE 62; RESP 17; TEMP 98; O2SAT 96
[2024-09-04 21:00] VITALS: BP 131/73; PULSE 61; RESP 14; TEMP 97.5; O2SAT 98
[2024-09-04] MEDS: VANCOMYCIN 1GM/250ML KIT 250 ML IV SCH (22:20)
[2024-09-05 01:00] VITALS: BP 144/82; PULSE 68; RESP 14; TEMP 97.7; O2SAT 98
[2024-09-05 05:00] VITALS: BP 147/79; PULSE 58; RESP 14; TEMP 98; O2SAT 98
[2024-09-05 07:22] LABS: Basophils # (auto) 0 10 ^3/uL (0-0.2); Basophils % (auto) 0.5 % (0.0-2.0); Eosinophils # (auto) 0.2 10 ^3/uL (0-0.8); Eosinophils % (auto) 3.4 % (0.0-7.0); Hematocrit 36.5 % (41.0-53.0); Hemoglobin 12.3 g/dL (13.5-17.5); Lymphocytes # (auto) 1.8 10 ^3/uL (0.4-5.4); Lymphocytes % (auto) 25.6 % (10.0-50.0); Mean Corpuscular Hemoglobin 29.3 pg (28.0-32.0); Mean Corpuscular Hgb Conc. 33.6 g/dL (32.0-36.0); Monocytes # (auto) 0.8 10 ^3/uL (0-1.3); Monocytes % (auto) 11.4 % (0.0-12.0); Neutrophils # (auto) 4.2 10 ^3/uL (1.6-8.6); Neutrophils % (auto) 59.1 % (37.0-80.0); Platelet Count (auto) 221 10^3/uL (140-450); Red Blood Cells 4.19 10^6/uL (4.5-5.90); Red Cell Distribution Width 14.1 % (11.8-14.3); White Blood Cell 7.1 10^3/uL (4.4-10.8)
[2024-09-05 07:37] LABS: Chloride 105 mmol/L (98-107); Potassium 3.9 mmol/L (3.5-5.1); Sodium 141 mmol/L (136-145)
[2024-09-05 07:38] LABS: Anion Gap 8 (5-15); Calcium 9.3 mg/dL (8.7-10.4); Carbon Dioxide 28 mmol/L (20-31)
[2024-09-05 07:43] LABS: BUN/Creatinine Ratio 15.7 (10.0-20.0); Blood Urea Nitrogen 18 mg/dL (9-23); Glucose 100 mg/dL (74-106)
[2024-09-05 09:00] VITALS: BP 137/77; PULSE 58; RESP 16; TEMP 97.6; O2SAT 96
[2024-09-05 11:28] LABS: INR 1.05 (0.9-1.15); Partial Thromboplastin Time 26.4 SEC (24.5-34.5); Prothrombin Time 11.1 sec (9.3-11.8)
[2024-09-05 12:57] VITALS: BP 129/70; PULSE 59; RESP 20; TEMP 97.8; O2SAT 96
[2024-09-05] MEDS ORDERED: IBUPROFEN 400 MG TAB PO PRN (13:30)
--- NOTE | 2024-09-05 13:37 | DVHPNRES ---
Progress Note Date Seen: Sep 05, 2024 Resident Creating Document: DMITRI MILLER RESIDENT Medical Necessity Reason Pt with a Central, PICC or Fol: No Subjective Review of Systems Patient is a 54-year-old male with past medical history of Hypertension, dyslipidemia, diabetes mellitus, diabetic foot status post amputation of right 5th and 4th toe, who comes in due to a nonhealing wound that has been present for the last 3 months in progressively getting worse associated with swelling and pain. According to the patient, he underwent amputation of the right 4th and 5th toe 3 months ago. Past surgical history: Right foot 4th and 5th toe amputation Home medications: Empagliflozin, aspirin, atorvastatin, losartan Social & Personal history: Patient is currently unhoused, has no next of kin and no [id number]. Denies current tobacco, alcohol and other drug abuse Allergies: Denied Patient seen and examined at bedside. Patient is alert and oriented to time, place person and responding to all questions. Reports improvement in foot pain, 6/10 in intensity. Objective vital signs Vital Sign Date Time Temp Pulse Resp B/P (MAP) Pulse Ox O2 Delivery O2 Flow Rate FiO2 09/05/24 12:57 97.8 59 20 129/70 (89) 96 97.8 09/05/24 07:45 Room Air* 0 21 Total Intake and Output 09/04/24 09/04/24 09/05/24 15:00 23:00 07:00 Intake Total 289 ml 1121 ml 1820 ml Balance 289 ml 1121 ml 1820 ml medications Current Medications Medications Dose Ordered Sig/Tamiko Route Start Time Stop Time Status Last Admin Dose Admin Vancomycin HCl 0 ml @ 0 mls/hr UD IV 09/01/24 00:30 Amlodipine Besylate 5 mg DAILY PO 09/01/24 10:00 09/05/24 10:24 5 MG Atorvastatin Calcium 10 mg HS PO 09/01/24 22:00 09/04/24 21:43 10 MG Empaglifozin 10 mg DAILY PO 09/01/24 10:00 09/05/24 12:19 10 MG Gabapentin 300 mg TID PO 09/01/24 06:00 09/05/24 05:58 300 MG Diagnostic Test (Pha) 1 strip Q6HR 09/01/24 06:00 09/05/24 12:00 1 STRIP Insulin Human Regular Q6HR SC 09/01/24 06:00 09/04/24 11:56 2 UNITS Dextrose 50 ml UD PRN IV 09/01/24 00:30 Acetaminophen/ Hydrocodone Bitart 1 tab Q4HP PRN PO 09/01/24 00:30 Ondansetron HCl 4 mg Q4HP PRN IV 09/01/24 00:30 Acetaminophen 650 mg Q6HP PRN PO 09/01/24 00:30 Piperacillin Sod/ Tazobactam Sod 100 ml @ 25 mls/hr Q8H IV 09/01/24 19:00 09/05/24 10:30 25 MLS/HR Aspirin 81 mg DAILY PO 09/02/24 10:00 09/05/24 10:24 81 MG Losartan Potassium 25 mg DAILY PO 09/02/24 10:00 09/05/24 10:24 25 MG Enoxaparin Sodium 40 mg DAILY SC 09/03/24 10:00 09/05/24 10:25 40 MG Vancomycin HCl 250 ml @ 250 mls/hr Q8H IV 09/04/24 22:00 09/05/24 06:05 250 MLS/HR Examination General Appearance: Cooperative. Well developed. Well nourished. NAD Head Exam: Normal inspection Neck Exam: Normal inspection. Non-tender. Normal alignment Pulmonary/Respiratory: Chest non-tender. Clear bilateral breath sounds, no crackles, no wheezing. Cardiovascular/Chest: Regular rate and rhythm. No murmurs. No JVD. Peripheral Pulses: 2+ Radial (R). 2+ Radial (L). 2+ Pedal (R). 2+ Pedal (L) Abdominal Exam: Normal bowel sounds. Soft. normal abdomen, no visible veins, Nontender. No hepatospenomegaly. No masses Lower extremities: Surgical site on right foot of 4th and 5th toe amputation with no fluctuating mass, does present erythema. Third and first toe of right foot under gauze, no active bleeding, no foul smell, surgical site clean. Presents weak pulses of right pedal and posterior tibial artery, rest of pulses within normal limits. Bilateral feet are warm to touch. Neuro/Mental Status: A&O x4. Coherent. Thoughts/Psych: Normal thought pattern. Appropriate mood and affect. Good judgement and insight Skin Exam: Normal inspection. Normal color. Warm. Dry laboratory and microbiology Laboratory Tests 09/05/24 06:34 Test 09/05/24 06:34 Range/Units Serum Glucose 100 74-106 mg/dL Microbiology Date/Time Source Procedure Growth Status 09/02/24 11:52 Foot Right Gram Stain - Final Resulted 09/02/24 11:52 Foot Right Anaerobic Culture - Preliminary Resulted 09/02/24 11:52 Foot Right Aerobic Culture - Preliminary Resulted 08/31/24 20:03 Blood Blood Culture - Preliminary NO GROWTH AFTER 72 HOURS OF INCUBATION. 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 Podiatry on board: Completed surgery on 09/02/2024, patient will need six weeks of IV antibiotics, awaiting results of surgical culture. Can weightbear as tolerated in postoperative shoe. We will obtain cultures from surgical sample Currently under empiric IV antibiotic (vancomycin and Zosyn) Final wound culture shows no growth; p.o. versus IV antibiotics at discharge PT on board health services director on board to evaluate SNF vs home health to complete IV antibiotics. Acetaminophen 650 mg b.i.d. scheduled Ibuprofen 400 mg q.6 hours as needed for moderate pain, [place] 5 as needed for severe pain Cellulitis of right foot Currently under empiric IV antibiotic (vancomycin and Zosyn) Obtain cultures (blood and wound), negative at the moment, pending final result. Diabetes - controlled (hemoglobin A1c 6.3%) On insulin sliding scale Ruled out peripheral artery disease Completed lower limb ultrasound which ruled out PAD Patient is currently on atorvastatin and aspirin, we will continue home medication Hypertension Continue home medication (losartan 25 mg p.o. daily) Dyslipidemia Continue home medication (atorvastatin 10 mg p.o. daily) Goals of care discussed with patient for over 18 minutes: Full code status Discussed plan with Dr. Restrepo, patient and nurses: Currently patient is under empiric IV antibiotic. Podiatry on board, completed surgery (incision and drainage) on 09/02/2024, awaiting surgical culture, and then adjust antibiotic regimen Plan discussed with: Patient, Other (RN) My Orders My Orders Orders - DMITRI MILLER RESIDENT Procedure Category Date Status Time Acetaminophen Tablet PHA 09/05/24 Verified (Tylenol Tablet) 22:00 Ibuprofen Tablet PHA 09/05/24 Verified (Motrin Tablet) 13:30 Dietary Evaluation Review Comments: 1. Change diet order to CCH0 75 gm/meal, High-Protein to meet est. needs 2. Continue ss insulin, frequent BG checks for glycemic control 3. Suggest oral nutrition supplements (Ensure HP BID, provides 160 kcal, 16 gm pro/carton) to optimize pts nutritional status 4. Ask CM to provide list of resources in pt's preferred geographic area to increase food access (food leal etc.) Expected Outcomes/Goals: Improved nutritional status, wound healing, weight maintenance Date of Service: Sep 05, 2024 Billing Provider: XIOMARA RESTREPO MD Common Visit Codes: [id number] INP/OBS CARE(HIGH) DMITRI MILLER RESIDENT Sep 05, 2024 13:37 XIOMARA RESTREPO MD Sep 07, 2024 16:11
[2024-09-05 17:00] VITALS: BP 104/66; PULSE 62; RESP 16; TEMP 98.5; O2SAT 95
[2024-09-05 21:00] VITALS: BP 121/58; PULSE 63; RESP 18; TEMP 97.9; O2SAT 99
[2024-09-05] MEDS: ACETAMINOPHEN 325 MG TAB PO SCH (21:46)
[2024-09-06 01:00] VITALS: BP 138/73; PULSE 60; RESP 18; TEMP 98.4; O2SAT 96
[2024-09-06 05:00] VITALS: BP 128/66; PULSE 64; RESP 18; TEMP 98.4; O2SAT 95
[2024-09-06 06:25] LABS: Basophils # (auto) 0 10 ^3/uL (0-0.2); Basophils % (auto) 0.4 % (0.0-2.0); Eosinophils # (auto) 0.2 10 ^3/uL (0-0.8); Eosinophils % (auto) 3.1 % (0.0-7.0); Hematocrit 37.7 % (41.0-53.0); Hemoglobin 12.6 g/dL (13.5-17.5); Lymphocytes # (auto) 1.7 10 ^3/uL (0.4-5.4); Lymphocytes % (auto) 21.7 % (10.0-50.0); Mean Corpuscular Hemoglobin 28.8 pg (28.0-32.0); Mean Corpuscular Hgb Conc. 33.4 g/dL (32.0-36.0); Mean Corpuscular Volume 86.3 fL (80.0-100.0); Monocytes # (auto) 0.8 10 ^3/uL (0-1.3); Monocytes % (auto) 10.6 % (0.0-12.0); Neutrophils % (auto) 64.2 % (37.0-80.0); Nucleated Red Blood Cells % 0.1 %; Platelet Count (auto) 236 10^3/uL (140-450); Red Blood Cells 4.37 10^6/uL (4.5-5.90); White Blood Cell 7.7 10^3/uL (4.4-10.8)
[2024-09-06 06:29] LABS: Anion Gap 10 (5-15); Carbon Dioxide 25 mmol/L (20-31); Sodium 142 mmol/L (136-145)
[2024-09-06 06:30] LABS: Calcium 9.5 mg/dL (8.7-10.4)
[2024-09-06 06:34] LABS: Chloride 107 mmol/L (98-107)
[2024-09-06 06:35] LABS: BUN/Creatinine Ratio 16.5 (10.0-20.0); Blood Urea Nitrogen 20 mg/dL (9-23); Glucose 93 mg/dL (74-106)
[2024-09-06 09:00] VITALS: BP 127/68; PULSE 68; RESP 18; TEMP 97.7; O2SAT 98
[2024-09-06] MEDS: VANCOMYCIN 1GM/250ML KIT 250 ML IV SCH (12:07)
[2024-09-06 12:55] VITALS: BP 117/73; PULSE 63; RESP 18; TEMP 98.6; O2SAT 98
[2024-09-06] MEDS ORDERED: EMPA1TAB PO (13:26)
[2024-09-06] MEDS ORDERED: AML5T PO (13:26)
[2024-09-06] MEDS ORDERED: AUG875T PO (13:26)
[2024-09-06] MEDS ORDERED: ASPI-325 PO (13:26)
[2024-09-06] MEDS ORDERED: GABA-1250 PO (13:26)
[2024-09-06] MEDS ORDERED: LINE1TAB6 PO (13:26)
[2024-09-06] MEDS ORDERED: LOS25T PO (13:26)
[2024-09-06] MEDS ORDERED: ACET-1882 PO (13:26)
[2024-09-06] MEDS ORDERED: ATOR20TA50 PO (13:26)
--- NOTE | 2024-09-06 16:14 | DVHDSRES ---
Discharge Summary Date of Admission Resident Creating Document: LAW ZAMBRANO RESIDENT Sep 01, 2024 at 00:23 Date of Discharge: Sep 06, 2024 Labs/Diagnostic Data: Laboratory Results Test 09/06/24 11:52 09/06/24 05:13 09/05/24 13:18 09/05/24 10:28 POC Glucose 120 mg/dl (70-106) White Blood Count 7.7 10^3/uL (4.4-10.8) Red Blood Count 4.37 10^6/uL (4.5-5.90) Hemoglobin 12.6 g/dL (13.5-17.5) Hematocrit 37.7 % (41.0-53.0) Mean Corpuscular Volume 86.3 fL (80.0-100.0) Mean Corpuscular Hemoglobin 28.8 pg (28.0-32.0) Mean Corpuscular Hemoglobin Concent 33.4 g/dL (32.0-36.0) Red Cell Distribution Width 14.0 % (11.8-14.3) Platelet Count 236 10^3/uL (140-450) Mean Platelet Volume 7.1 fL (6.9-10.8) Neutrophils (%) (Auto) 64.2 % (37.0-80.0) Lymphocytes (%) (Auto) 21.7 % (10.0-50.0) Monocytes (%) (Auto) 10.6 % (0.0-12.0) Eosinophils (%) (Auto) 3.1 % (0.0-7.0) Basophils (%) (Auto) 0.4 % (0.0-2.0) Neutrophils # (Auto) 5.0 10 ^3/uL (1.6-8.6) Lymphocytes # (Auto) 1.7 10 ^3/uL (0.4-5.4) Monocytes # (Auto) 0.8 10 ^3/uL (0-1.3) Eosinophils # (Auto) 0.2 10 ^3/uL (0-0.8) Basophils # (Auto) 0 10 ^3/uL (0-0.2) Nucleated Red Blood Cells 0.1 % Sodium Level 142 mmol/L (136-145) Potassium Level 4.0 mmol/L (3.5-5.1) Chloride Level 107 mmol/L (98-107) Carbon Dioxide Level 25 mmol/L (20-31) Anion Gap 10 (5-15) Blood Urea Nitrogen 20 mg/dL (9-23) Creatinine 1.21 mg/dL (0.700-1.30) Glomerular Filtration Rate Calc 71 mL/min (>90) BUN/Creatinine Ratio 16.5 (10.0-20.0) Serum Glucose 93 mg/dL (74-106) Calcium Level 9.5 mg/dL (8.7-10.4) Random Vancomycin Level 11.1 ug/mL (5-10) Vancomycin Level Trough 20.0 ug/mL (5-10) Prothrombin Time 11.1 sec (9.3-11.8) Prothrombin Time INR 1.05 (0.9-1.15) Activated Partial Thromboplast Time 26.4 SEC (24.5-34.5) Vancomycin Level Peak 23.0 ug/mL (18-26) Test 09/03/24 04:39 09/01/24 15:17 09/01/24 08:26 08/31/24 20:03 Phosphorus Level 3.1 mg/dL (2.4-5.1) Magnesium Level 2.1 mg/dL (1.6-2.6) Creatine Kinase 100 U/L (46-171) Urine Color Light-yellow (Yellow) Urine Clarity Clear (Clear) Urine pH 5.0 (5.0-9.0) Urine Specific [place] 1.029 (1.001-1.035) Urine Protein Negative (Negative) Urine Ketones Negative (Negative) Urine Blood Negative /uL (Negative) Urine Nitrite Negative (Negative) Urine Bilirubin Negative (Negative) Urine Urobilinogen Normal mg/dL (Negative) Urine Leukocyte Esterase Negative /uL (Negative) Urine RBC 1 /hpf (0 - 3) Urine Microscopic WBC < 1 /HPF (0-3) Urine Squamous Epithelial Cells None seen /hpf (<5) Urine Bacteria None seen /hpf (None Seen) Urine Glucose 4+ mg/dL (Normal) Urine Opiates Screen Neg (NEGATIVE) Urine Fentanyl Screen Neg (NEGATIVE) Urine Barbiturates Screen Neg (NEGATIVE) Urine Phencyclidine Screen Neg (NEGATIVE) Urine Amphetamines Screen Neg (NEGATIVE) Urine Benzodiazepines Screen Neg (NEGATIVE) Urine Cocaine Screen Neg (NEGATIVE) Urine Cannabinoids Screen Neg (NEGATIVE) Hemoglobin A1c 6.3 % A1C (<5.7) Lactic Acid Level 1.3 mmol/L (0.4-2.0) Total Bilirubin 0.5 mg/dL (0.2-1.0) Aspartate Amino Transferase (AST) 13 U/L (13-40) Alanine Aminotransferase (ALT) 16 U/L (7-40) Alkaline Phosphatase 79 U/L (46-116) Total Protein 6.9 g/dL (5.7-8.2) Albumin 4.3 g/dL (3.2-4.8) Thyroid Stimulating Hormone (TSH) 1.59 uIU/mL (0.55-4.78) Erythrocyte Sedimentation Rate 34 mm/hr (0-20) Other Laboratory Tests 09/06/24 05:13 Brief Hx & Hospital Course: Salvador Jean-Baptiste 54-year-old male patient who presents to the ED for evaluation of right foot nonhealing wound which has occurred approximately three months ago, getting worse, associating with swelling and pain. Patient reports right foot 5th and 4th toe amputation approximately three months ago. Denies fever, chills, syncope, palpitation, trauma, nausea, vomiting, diarrhea, constipation, dysuria, recent travel, sick contacts and motor or sensory deficits. Past Medical History: Hypertension, dyslipidemia, diabetes mellitus, diabetic foot status post amputation of right 5th and 4th toe Surgical history: Right foot 4th and 5th toe amputation Family History: Noncontributory Social history: Patient is currently homeless, has no next of kin and no [id number]. Denies current tobacco, alcohol and other drug abuse Allergies: Denies Home medication: Empagliflozin 10 mg p.o. daily, aspirin 81 mg p.o. daily, atorvastatin 10 mg p.o. daily, losartan 25 mg p.o. daily Brief hospital course: Diabetic foot complicated osteomyelitis of 1st and 3rd right toe status post incision and drainage associated with cellulitis of right foot, responding to IV fluids, IV antibiotics (vancomycin and Zosyn) and wound care. On admission completed CT and MRI of right foot which evidence osteomyelitis, obtained lower limb duplex ultrasound which ruled out peripheral artery disease. Obtained results from blood and wound culture which were negative for growth, surgical culture obtained on 09/02/2024 negative at the moment (still pending final results). Evaluated by Podiatry specialist who completed procedure and indicated weight bearing postop shoe, IV antibiotics for six weeks since surgical procedure, and follow up as outpatient. Patient evaluated by home health care social worker due to living situation (patient lives in a motel, has no family), evaluating safe discharge to SNF, so as to continue with IV antibiotics and PT sessions. Patient hemodynamically stable, asymptomatic, in condition to be discharged to SNF. Was granted under optimal medical therapy (Zosyn), gave advice on healthy lifestyle habits, and follow up as outpatient with PCP, Infectious Disease and horticultural worker. Pending bed availability in SNF. DIAGNOSIS # Diabetic foot complicated with osteomyelitis of 1st and 3rd right toe - status post incision and drainage # Cellulitis of right foot # Diabetes - controlled (hemoglobin A1c 6.3%) # Ruled out peripheral artery disease # Hypertension # Dyslipidemia Goals of care discussed with patient for over 18 minutes: Full code status Discussed plan with Dr. Seay, patient and nurses. Examination Patient lying in bed, in no acute distress General: Lucid, afebrile, mucosae are moist Cardiovascular: Normal S1 and S2. No murmurs, gallops or rubs Respiratory: Normal ventilation mechanics. Clear lung sounds on auscultation Abdomen: Soft, nontender, no organomegaly, normal bowel sounds MSK/skin: Mobilizes 4 limbs. Skin is dry and warm. Surgical site on right foot of 4th and 5th toe amputation with no fluctuating mass, does present erythema. Third and first toe of right foot under gauze, no active bleeding, no foul smell, surgical site clean. Presents weak pulses of right pedal and posterior tibial artery, rest of pulses within normal limits. Bilateral feet are warm to touch. Neurological: Oriented in 3 spheres. No motor no sensitive deficits. Pupils are isocoric and reactive Operations or Procedures EXAM: CT CT R FOOT WO CONTRAST INDICATION: WOUND EXAM DATE: 08/31/2024 08:19 PM COMPARISON: None TECHNIQUE: Multiple axial CT images of the right foot were obtained using bone algorithm. Axial and coronal reformatting was done. Bone and soft tissue windows were reviewed. Radiation Dose Information: CT Dose: CTDI volume is 7.75 mGy. Dose-length product is 321.82 mGy*cm Findings/Impression: Limited evaluation given noncontrast technique. There is no evidence of an acute fracture, dislocation, blastic, or lytic lesions. Erosion of the 1st distal phalanx and focus of air in the 3rd PIP joint. Findings are nonspecific but could reflect an infectious etiology. Recommend a contrast enhanced MRI or nuclear medicine WBC scan for further evaluation. Transmetatarsectomy of the 4th and 5th digits. No radiopaque foreign bodies. ATED BY: BRITTANIE PEREZ DO DICTATED DATE/TIME: 08/31/24 2132 Bilateral Lower Extremity Arterial Duplex Date: 09/01/2024 10:09 AM Clinical History: Rule out PAD Comparison: None Findings: Duplex Doppler evaluation including color Doppler and spectral/pulsed waveform analysis of the lower extremity arteries was performed. Velocities and waveforms within normal limits. IMPRESSION: There is no evidence for peripheral vascular insufficiency in the right lower extremity. There is no evidence for peripheral vascular insufficiency in the left lower extremity. No significant focal stenosis is identified. END IMPRESSION: ATED BY: ALEKSANDR BRICE MD DICTATED DATE/TIME: 09/01/24 1205 CLINICAL HISTORY: Rule out osteomyelitis. Wound. Infection. TECHNIQUE: Multi sequence multi planar MRI images of the right midfoot and forefoot were obtained without IV contrast. COMPARISON: CT CT R FOOT WO CONTRAST on DOS: 08/31/24 FINDINGS: Postsurgical changes of prior amputations of the 4th and 5th metatarsals. Prominent subcutaneous edema in the great toe, suspected cellulitis in the appropriate clinical setting. There is marrow edema involving the entire distal phalanx of the great toe with bony destructive changes, suspected osteomyelitis in the setting of overlying soft tissue infection. No marrow signal abnormality seen in the proximal phalanx of the great toe. No organized fluid collection identified to suggest abscess, although limited evaluation for abscess on noncontrast enhanced exam. There are chronic appearing bony destructive changes of the 3rd metatarsal head and neck region and base of the proximal phalanx of the 3rd digit with hammertoe deformity of the 3rd digit. There is a wound at the plantar aspect of the 3rd MTP joint without evidence for adjacent osteomyelitis. There is a wound at the dorsal aspect of the 3rd digit PIP joint with associated subcutaneous edema, likely cellulitis. There is marrow edema in the distal aspect of the proximal phalanx, suspected osteomyelitis. Possible marrow edema in the base of the middle phalanx of the 3rd digit, for which osteomyelitis is not excluded. Moderate arthritic changes of the 2nd MTP joint. IMPRESSION: 1. Suspected osteomyelitis in the distal phalanx of the great toe as described above. 2. Suspected osteomyelitis in the distal aspect of the proximal phalanx of the 3rd digit and possible osteomyelitis of the base of the middle phalanx of the 3rd digit. 3. Soft tissue inflammatory changes seen of the great toe and 3rd digit as described above, likely cellulitis, without visualized focal fluid collection identified to suggest abscess, although limited evaluation for abscess noncontrast enhanced exam. 4. Additional findings as detailed above. ATED BY: CARLOS MANUEL NIETO DO DICTATED DATE/TIME: 09/01/24 1434 Condition at Discharge: Good Final Diagnosis/Problems List # Diabetic foot complicated with osteomyelitis of 1st and 3rd right toe - status post incision and drainage # Cellulitis of right foot # Diabetes - controlled (hemoglobin A1c 6.3%) # Ruled out peripheral artery disease # Hypertension # Dyslipidemia Discharge Disposition: [facility] Discharge Will this Physician continue t: No Discharge Instruct/Medications Diet: Consistent carbohydrate, Cardiac 2g Na,low cholest Activity: No Restrictions, As Tolerated Follow Up/Referral: PCP Podiatry Infectious disease Medications: Augmentin and linezolid p.o. for six weeks Discharge Statement: "Patient was advised to return to the ER or call 911 if any headaches, dizziness, shortness of breath, chest pain, abdominal pain, bleeding, fevers, or worsening of medical condition. Patient was counseled about treatment plan, medications, possible side effects, patientverbalized understanding. All questions were answered to the best of my ability. This discharge took greater then 30 minutes in planning, reviewing documentation, counseling the patient, and discussing with other team members." ASSESSMENT ASSESSMENT Assessment Diabetic foot complicated with osteomyelitis status postop LAW ZAMBRANO RESIDENT Sep 06, 2024 16:14
[2024-09-06 17:00] VITALS: BP 135/70; PULSE 64; RESP 18; TEMP 98.3; O2SAT 98
[2024-09-06 20:40] VITALS: BP 143/79; PULSE 61; RESP 16; TEMP 97.9; O2SAT 98
[2024-09-07] VITALS (7 sets, daily range): BP systolic 107–144; BP diastolic 56–85; PULSE 51–72; RESP 16–18; TEMP 97.7–98.4; O2SAT 96–99
--- NOTE | 2024-09-07 14:29 | DVHPNRES ---
Progress Note Date Seen: Sep 07, 2024 Resident Creating Document: LAW ZAMBRANO RESIDENT Medical Necessity Reason Pt with a Central, PICC or Fol: No Subjective Review of Systems Salvador Jean-Baptiste 54-year-old male patient who presents to the ED for evaluation of right foot nonhealing wound which has occurred approximately three months ago, getting worse, associating with swelling and pain. Patient reports right foot 5th and 4th toe amputation approximately three months ago. Denies fever, chills, syncope, palpitation, trauma, nausea, vomiting, diarrhea, constipation, dysuria, recent travel, sick contacts and motor or sensory deficits. 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 Denies current tobacco, alcohol and other drug abuse Allergies: Denies Home medication: Empagliflozin 10 mg p.o. daily, aspirin 81 mg p.o. daily, atorvastatin 10 mg p.o. daily, losartan 25 mg p.o. daily Patient seen and examined at bedside. Currently status postop (incision and drainage done on 09/02/2024). He is complaining of mild pain in surgical site he is able to mobilize, weight-bearing. Planning discharge to SNF to complete IV antibiotics for six weeks Objective vital signs Vital Sign Date Time Temp Pulse Resp B/P (MAP) Pulse Ox O2 Delivery O2 Flow Rate FiO2 09/07/24 12:32 97.9 51 18 119/76 (90) 98 97.9 09/06/24 20:00 Room Air* 0 21 Total Intake and Output 09/06/24 09/06/24 09/07/24 15:00 23:00 07:00 Intake Total 275 ml 1900 ml 1100 ml Balance 275 ml 1900 ml 1100 ml medications Current Medications Medications Dose Ordered Sig/Tamiko Route Start Time Stop Time Status Last Admin Dose Admin Vancomycin HCl 0 ml @ 0 mls/hr UD IV 09/01/24 00:30 Amlodipine Besylate 5 mg DAILY PO 09/01/24 10:00 09/07/24 10:35 5 MG Atorvastatin Calcium 10 mg HS PO 09/01/24 22:00 09/06/24 21:15 10 MG Empaglifozin 10 mg DAILY PO 09/01/24 10:00 09/07/24 10:35 10 MG Gabapentin 300 mg TID PO 09/01/24 06:00 09/07/24 05:16 300 MG Diagnostic Test (Pha) 1 strip Q6HR 09/01/24 06:00 09/07/24 12:00 1 STRIP Insulin Human Regular Q6HR SC 09/01/24 06:00 09/06/24 18:24 2 UNITS Dextrose 50 ml UD PRN IV 09/01/24 00:30 Ondansetron HCl 4 mg Q4HP PRN IV 09/01/24 00:30 Piperacillin Sod/ Tazobactam Sod 100 ml @ 25 mls/hr Q8H IV 09/01/24 19:00 09/07/24 11:29 25 MLS/HR Aspirin 81 mg DAILY PO 09/02/24 10:00 09/07/24 10:34 81 MG Losartan Potassium 25 mg DAILY PO 09/02/24 10:00 09/07/24 10:35 25 MG Enoxaparin Sodium 40 mg DAILY SC 09/03/24 10:00 09/07/24 10:34 40 MG Acetaminophen 650 mg BID PO 09/05/24 22:00 Ibuprofen 400 mg Q6HP PRN PO 09/05/24 13:30 Vancomycin HCl 250 ml @ 250 mls/hr Q20H IV 09/06/24 12:00 09/07/24 08:00 250 MLS/HR Examination Patient lying in bed, in no acute distress General: Lucid, afebrile, mucosae are moist Cardiovascular: Normal S1 and S2. No murmurs, gallops or rubs Respiratory: Normal ventilation mechanics. Clear lung sounds on auscultation Abdomen: Soft, nontender, no organomegaly, normal bowel sounds MSK/skin: Mobilizes 4 limbs. Skin is dry and warm. Surgical site on right foot of 4th and 5th toe amputation with no fluctuating mass, does present erythema. Third and first toe of right foot under gauze, no active bleeding, no foul smell, surgical site clean. Presents weak pulses of right pedal and posterior tibial artery, rest of pulses within normal limits. Bilateral feet are warm to touch. Neurological: Oriented in 3 spheres. No motor no sensitive deficits. Pupils are isocoric and reactive laboratory and microbiology Laboratory Tests 09/06/24 05:13 Test 09/06/24 05:13 Range/Units Serum Glucose 93 74-106 mg/dL Microbiology Date/Time Source Procedure Growth Status 09/02/24 11:52 Foot Right Gram Stain - Final Complete 09/02/24 11:52 Foot Right Anaerobic Culture - Final Complete 09/02/24 11:52 Foot Right Aerobic Culture - Final Complete 08/31/24 20:03 Blood Blood Culture - Final NO GROWTH AFTER 5 DAYS OF INCUBATION. 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 Podiatry on board: Completed surgery on 09/02/2024, patient will need six weeks of IV antibiotics, awaiting results of surgical culture. Can weightbear as tolerated in postoperative shoe. We will obtain cultures from surgical sample Currently under empiric IV antibiotic (Zosyn, previously vancomycin) Obtain cultures blood and wound culture negative. Surgical culture presented coagulase negative Staphylococcus and diphtheroids PT on board special services coordinator on board to evaluate SNF vs home health to complete IV antibiotics. # Cellulitis of right foot Currently under empiric IV antibiotic (Zosyn, previously vancomycin) Obtain cultures (blood and wound), negative at the moment, pending final result. # Diabetes - controlled (hemoglobin A1c 6.3%) On insulin sliding scale # Ruled out peripheral artery disease Completed lower limb ultrasound which ruled out PAD Patient is currently on atorvastatin and aspirin, we will continue home medication # Hypertension Continue home medication (losartan 25 mg p.o. daily) # Dyslipidemia Continue home medication (atorvastatin 10 mg p.o. daily) Goals of care discussed with patient for over 18 minutes: Full code status Discussed plan with Dr. Amado, patient and nurses: Currently patient is under adjusted IV antibiotic. Podiatry on board, completed surgery (incision and drainage) on 09/02/2024, surgical culture shows coagulase negative Staphylococcus and diphtheroids. Planning discharge to SNF to complete IV antibiotic, awaiting SNF approval Plan discussed with: Patient, Other (Nurses) My Orders My Orders Orders - LAW ZAMBRANO RESIDENT Procedure Category Date Status Time Discharge DISCHARGE 09/06/24 Transmitted 18:58 * Milk Receiver Tank Truck CONS 09/07/24 Transmitted Consult 06:24 Dietary Evaluation Review Comments: 1. Change diet order to CCH0 75 gm/meal, High-Protein to meet est. needs 2. Continue ss insulin, frequent BG checks for glycemic control 3. Suggest oral nutrition supplements (Ensure HP BID, provides 160 kcal, 16 gm pro/carton) to optimize pts nutritional status 4. Ask CM to provide list of resources in pt's preferred geographic area to increase food access (food leal etc.) Expected Outcomes/Goals: Improved nutritional status, wound healing, weight maintenance LAW ZAMBRANO RESIDENT Sep 07, 2024 14:29
[2024-09-08] VITALS (8 sets, daily range): BP systolic 122–144; BP diastolic 38–84; PULSE 56–63; RESP 17–19; TEMP 97.7–98.4; O2SAT 96–99
--- NOTE | 2024-09-08 14:01 | DVHPNRES ---
Progress Note Date Seen: Sep 08, 2024 Resident Creating Document: ALW ZAMBRANO RESIDENT Medical Necessity Reason Pt with a Central, PICC or Fol: No Subjective Review of Systems Salvador Jean-Baptiste 54-year-old male patient who presents to the ED for evaluation of right foot nonhealing wound which has occurred approximately three months ago, getting worse, associating with swelling and pain. Patient reports right foot 5th and 4th toe amputation approximately three months ago. Denies fever, chills, syncope, palpitation, trauma, nausea, vomiting, diarrhea, constipation, dysuria, recent travel, sick contacts and motor or sensory deficits. Past Medical History: Hypertension, dyslipidemia, diabetes mellitus, diabetic foot status post amputation of right 5th and 4th toe Surgical history: Right foot 4th and 5th toe amputation Family History: Noncontributory Social history: Patient is currently homeless, has no next of kin and no [id number]. Denies current tobacco, alcohol and other drug abuse Allergies: Denies Home medication: Empagliflozin 10 mg p.o. daily, aspirin 81 mg p.o. daily, atorvastatin 10 mg p.o. daily, losartan 25 mg p.o. daily Patient seen and examined at bedside. Currently status postop (incision and drainage done on 09/02/2024). He is complaining of mild pain in surgical site he is able to mobilize, weight-bearing. Planning discharge to SNF to complete IV antibiotics for six weeks Objective vital signs Vital Sign Date Time Temp Pulse Resp B/P (MAP) Pulse Ox O2 Delivery O2 Flow Rate FiO2 09/08/24 11:00 122/70 09/08/24 09:00 97.9 57 19 97 97.9 09/08/24 08:30 Room Air* 0 21 Total Intake and Output 09/07/24 09/07/24 09/08/24 15:00 23:00 07:00 Intake Total 350 ml 1620 ml 600 ml Balance 350 ml 1620 ml 600 ml medications Current Medications Medications Dose Ordered Sig/Tamiko Route Start Time Stop Time Status Last Admin Dose Admin Amlodipine Besylate 5 mg DAILY PO 09/01/24 10:00 09/08/24 10:59 5 MG Atorvastatin Calcium 10 mg HS PO 09/01/24 22:00 09/07/24 21:00 10 MG Empaglifozin 10 mg DAILY PO 09/01/24 10:00 09/08/24 11:00 10 MG Gabapentin 300 mg TID PO 09/01/24 06:00 09/08/24 05:36 300 MG Diagnostic Test (Pha) 1 strip Q6HR 09/01/24 06:00 09/08/24 12:26 1 STRIP Insulin Human Regular Q6HR SC 09/01/24 06:00 09/07/24 23:59 3 UNITS Dextrose 50 ml UD PRN IV 09/01/24 00:30 Ondansetron HCl 4 mg Q4HP PRN IV 09/01/24 00:30 Piperacillin Sod/ Tazobactam Sod 100 ml @ 25 mls/hr Q8H IV 09/01/24 19:00 09/08/24 10:58 25 MLS/HR Aspirin 81 mg DAILY PO 09/02/24 10:00 09/08/24 10:59 81 MG Losartan Potassium 25 mg DAILY PO 09/02/24 10:00 09/08/24 11:00 25 MG Enoxaparin Sodium 40 mg DAILY SC 09/03/24 10:00 09/08/24 10:59 40 MG Acetaminophen 650 mg BID PO 09/05/24 22:00 Ibuprofen 400 mg Q6HP PRN PO 09/05/24 13:30 Examination Patient lying in bed, in no acute distress General: Lucid, afebrile, mucosae are moist Cardiovascular: Normal S1 and S2. No murmurs, gallops or rubs Respiratory: Normal ventilation mechanics. Clear lung sounds on auscultation Abdomen: Soft, nontender, no organomegaly, normal bowel sounds MSK/skin: Mobilizes 4 limbs. Skin is dry and warm. Surgical site on right foot of 4th and 5th toe amputation with no fluctuating mass, does present erythema. Third and first toe of right foot under gauze, no active bleeding, no foul smell, surgical site clean. Presents weak pulses of right pedal and posterior tibial artery, rest of pulses within normal limits. Bilateral feet are warm to touch. Neurological: Oriented in 3 spheres. No motor no sensitive deficits. Pupils are isocoric and reactive laboratory and microbiology Laboratory Tests 09/08/24 03:00 09/06/24 05:13 Test 09/06/24 05:13 Range/Units Serum Glucose 93 74-106 mg/dL Microbiology Date/Time Source Procedure Growth Status 09/02/24 11:52 Foot Right Gram Stain - Final Complete 09/02/24 11:52 Foot Right Anaerobic Culture - Final Complete 09/02/24 11:52 Foot Right Aerobic Culture - Final Complete 08/31/24 20:03 Blood Blood Culture - Final NO GROWTH AFTER 5 DAYS OF INCUBATION. 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 Podiatry on board: Completed surgery on 09/02/2024, patient will need six weeks of IV antibiotics, awaiting results of surgical culture. Can weightbear as tolerated in postoperative shoe. We will obtain cultures from surgical sample Currently under empiric IV antibiotic (Zosyn, previously vancomycin) Obtain cultures blood and wound culture negative. Surgical culture presented coagulase negative Staphylococcus and diphtheroids PT on board imaging services director on board to evaluate SNF vs home health to complete IV antibiotics. # Cellulitis of right foot Currently under empiric IV antibiotic (Zosyn, previously vancomycin) Obtain cultures (blood and wound), negative at the moment, pending final result. # Diabetes - controlled (hemoglobin A1c 6.3%) On insulin sliding scale # Ruled out peripheral artery disease Completed lower limb ultrasound which ruled out PAD Patient is currently on atorvastatin and aspirin, we will continue home medication # Hypertension Continue home medication (losartan 25 mg p.o. daily) # Dyslipidemia Continue home medication (atorvastatin 10 mg p.o. daily) Goals of care discussed with patient for over 18 minutes: Full code status Discussed plan with Dr. Amado, patient and nurses: Currently patient is under adjusted IV antibiotic. Podiatry on board, completed surgery (incision and drainage) on 09/02/2024, surgical culture shows coagulase negative Staphylococcus and diphtheroids. Planning discharge to SNF to complete IV antibiotic, awaiting SNF approval Plan discussed with: Patient, Other (Nurses) My Orders My Orders Orders - LAW ZAMBRANO RESIDENT Procedure Category Date Status Time * Brass Molder Helper CONS 09/07/24 Transmitted Consult 14:29 Dietary Evaluation Review Comments: 1. Change diet order to CCH0 75 gm/meal, High-Protein to meet est. needs 2. Continue ss insulin, frequent BG checks for glycemic control 3. Suggest oral nutrition supplements (Ensure HP BID, provides 160 kcal, 16 gm pro/carton) to optimize pts nutritional status 4. Ask CM to provide list of resources in pt's preferred geographic area to increase food access (food leal etc.) Expected Outcomes/Goals: Improved nutritional status, wound healing, weight maintenance LAW ZAMBRANO RESIDENT Sep 08, 2024 14:01
[2024-09-09] VITALS (8 sets, daily range): BP systolic 118–142; BP diastolic 64–80; PULSE 54–100; RESP 17–19; TEMP 97.4–98.8; O2SAT 97–99
--- NOTE | 2024-09-09 06:38 | DVHPNRES ---
Progress Note Date Seen: Sep 09, 2024 Resident Creating Document: LAW ZAMBRANO RESIDENT Medical Necessity Reason Pt with a Central, PICC or Fol: No Subjective Review of Systems Salvador Jean-Baptiste 54-year-old male patient who presents to the ED for evaluation of right foot nonhealing wound which has occurred approximately three months ago, getting worse, associating with swelling and pain. Patient reports right foot 5th and 4th toe amputation approximately three months ago. Denies fever, chills, syncope, palpitation, trauma, nausea, vomiting, diarrhea, constipation, dysuria, recent travel, sick contacts and motor or sensory deficits. Past Medical History: Hypertension, dyslipidemia, diabetes mellitus, diabetic foot status post amputation of right 5th and 4th toe Surgical history: Right foot 4th and 5th toe amputation Family History: Noncontributory Social history: Patient is currently homeless, has no next of kin and no [id number]. Denies current tobacco, alcohol and other drug abuse Allergies: Denies Home medication: Empagliflozin 10 mg p.o. daily, aspirin 81 mg p.o. daily, atorvastatin 10 mg p.o. daily, losartan 25 mg p.o. daily Patient seen and examined at bedside. Currently status postop (incision and drainage done on 09/02/2024). He is complaining of mild pain in surgical site he is able to mobilize, weight-bearing. Planning discharge to SNF to complete IV antibiotics for six weeks Objective vital signs Vital Sign Date Time Temp Pulse Resp B/P (MAP) Pulse Ox O2 Delivery O2 Flow Rate FiO2 09/09/24 05:00 97.4 58 18 132/70 (90) 99 97.4 09/08/24 20:00 Room Air* 0 21 Total Intake and Output 09/08/24 09/08/24 09/09/24 15:00 23:00 07:00 Intake Total 100 ml 1200 ml 240 ml Balance 100 ml 1200 ml 240 ml medications Current Medications Medications Dose Ordered Sig/Tamiko Route Start Time Stop Time Status Last Admin Dose Admin Amlodipine Besylate 5 mg DAILY PO 09/01/24 10:00 09/08/24 10:59 5 MG Atorvastatin Calcium 10 mg HS PO 09/01/24 22:00 09/08/24 23:05 10 MG Empaglifozin 10 mg DAILY PO 09/01/24 10:00 09/08/24 11:00 10 MG Gabapentin 300 mg TID PO 09/01/24 06:00 09/08/24 23:05 300 MG Diagnostic Test (Pha) 1 strip Q6HR 09/01/24 06:00 09/09/24 00:34 1 STRIP Insulin Human Regular Q6HR SC 09/01/24 06:00 09/07/24 23:59 3 UNITS Dextrose 50 ml UD PRN IV 09/01/24 00:30 Ondansetron HCl 4 mg Q4HP PRN IV 09/01/24 00:30 Piperacillin Sod/ Tazobactam Sod 100 ml @ 25 mls/hr Q8H IV 09/01/24 19:00 09/09/24 03:42 25 MLS/HR Aspirin 81 mg DAILY PO 09/02/24 10:00 09/08/24 10:59 81 MG Losartan Potassium 25 mg DAILY PO 09/02/24 10:00 09/08/24 11:00 25 MG Enoxaparin Sodium 40 mg DAILY SC 09/03/24 10:00 09/08/24 10:59 40 MG Acetaminophen 650 mg BID PO 09/05/24 22:00 Ibuprofen 400 mg Q6HP PRN PO 09/05/24 13:30 Examination Patient lying in bed, in no acute distress General: Lucid, afebrile, mucosae are moist Cardiovascular: Normal S1 and S2. No murmurs, gallops or rubs Respiratory: Normal ventilation mechanics. Clear lung sounds on auscultation Abdomen: Soft, nontender, no organomegaly, normal bowel sounds MSK/skin: Mobilizes 4 limbs. Skin is dry and warm. Surgical site on right foot of 4th and 5th toe amputation with no fluctuating mass, does present erythema. Third and first toe of right foot under gauze, no active bleeding, no foul smell, surgical site clean. Presents weak pulses of right pedal and posterior tibial artery, rest of pulses within normal limits. Bilateral feet are warm to touch. Neurological: Oriented in 3 spheres. No motor no sensitive deficits. Pupils are isocoric and reactive laboratory and microbiology Laboratory Tests 09/08/24 03:00 09/06/24 05:13 Test 09/06/24 05:13 Range/Units Serum Glucose 93 74-106 mg/dL Microbiology Date/Time Source Procedure Growth Status 09/02/24 11:52 Foot Right Gram Stain - Final Complete 09/02/24 11:52 Foot Right Anaerobic Culture - Final Complete 09/02/24 11:52 Foot Right Aerobic Culture - Final Complete 08/31/24 20:03 Blood Blood Culture - Final NO GROWTH AFTER 5 DAYS OF INCUBATION. 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 Podiatry on board: Completed surgery on 09/02/2024, patient will need six weeks of IV antibiotics, awaiting results of surgical culture. Can weightbear as tolerated in postoperative shoe. We will obtain cultures from surgical sample Currently under empiric IV antibiotic (Zosyn, previously vancomycin) Obtain cultures blood and wound culture negative. Surgical culture presented coagulase negative Staphylococcus and diphtheroids PT on board health services administrator on board to evaluate SNF vs home health to complete IV antibiotics. # Cellulitis of right foot Currently under empiric IV antibiotic (Zosyn, previously vancomycin) Obtain cultures (blood and wound), negative at the moment, pending final result. # Diabetes - controlled (hemoglobin A1c 6.3%) On insulin sliding scale # Ruled out peripheral artery disease Completed lower limb ultrasound which ruled out PAD Patient is currently on atorvastatin and aspirin, we will continue home medication # Hypertension Continue home medication (losartan 25 mg p.o. daily) # Dyslipidemia Continue home medication (atorvastatin 10 mg p.o. daily) Goals of care discussed with patient for over 18 minutes: Full code status Discussed plan with Dr. Amado, patient and nurses: Currently patient is under adjusted IV antibiotic. Podiatry on board, completed surgery (incision and drainage) on 09/02/2024, surgical culture shows coagulase negative Staphylococcus and diphtheroids. Planning discharge to SNF to complete IV antibiotic, awaiting SNF approval Plan discussed with: Patient, Other (Nurses) Dietary Evaluation Review Comments: 1. Change diet order to CCH0 75 gm/meal, High-Protein to meet est. needs 2. Continue ss insulin, frequent BG checks for glycemic control 3. Suggest oral nutrition supplements (Ensure HP BID, provides 160 kcal, 16 gm pro/carton) to optimize pts nutritional status 4. Ask CM to provide list of resources in pt's preferred geographic area to increase food access (food leal etc.) Expected Outcomes/Goals: Improved nutritional status, wound healing, weight maintenance LAW ZAMBRANO RESIDENT Sep 09, 2024 06:38
[2024-09-09 09:42] LABS: INR 1.08 (0.9-1.15); Partial Thromboplastin Time 27.1 SEC (24.5-34.5); Prothrombin Time 11.4 sec (9.3-11.8)
[2024-09-10] VITALS (7 sets, daily range): BP systolic 114–131; BP diastolic 67–80; PULSE 59–67; RESP 18; TEMP 97.4–98.3; O2SAT 95–99
--- NOTE | 2024-09-10 06:11 | DVHPNRES ---
Progress Note Date Seen: Sep 10, 2024 Resident Creating Document: LAW ZAMBRANO RESIDENT Medical Necessity Reason Pt with a Central, PICC or Fol: No Subjective Review of Systems Salvador Jean-Baptiste 54-year-old male patient who presents to the ED for evaluation of right foot nonhealing wound which has occurred approximately three months ago, getting worse, associating with swelling and pain. Patient reports right foot 5th and 4th toe amputation approximately three months ago. Denies fever, chills, syncope, palpitation, trauma, nausea, vomiting, diarrhea, constipation, dysuria, recent travel, sick contacts and motor or sensory deficits. Past Medical History: Hypertension, dyslipidemia, diabetes mellitus, diabetic foot status post amputation of right 5th and 4th toe Surgical history: Right foot 4th and 5th toe amputation Family History: Noncontributory Social history: Patient is currently homeless, has no next of kin and no [id number]. Denies current tobacco, alcohol and other drug abuse Allergies: Denies Home medication: Empagliflozin 10 mg p.o. daily, aspirin 81 mg p.o. daily, atorvastatin 10 mg p.o. daily, losartan 25 mg p.o. daily Patient seen and examined at bedside. Currently status postop (incision and drainage done on 09/02/2024). He is complaining of mild pain in surgical site he is able to mobilize, weight-bearing. Planning discharge to SNF to complete IV antibiotics for six weeks, awaiting authorization. Objective vital signs Vital Sign Date Time Temp Pulse Resp B/P (MAP) Pulse Ox O2 Delivery O2 Flow Rate FiO2 09/10/24 05:00 98.3 65 18 114/67 (83) 99 98.3 09/09/24 20:00 Room Air* 0 21 Total Intake and Output 09/09/24 09/09/24 09/10/24 15:00 23:00 07:00 Intake Total 100 ml 2280 ml 1600 ml Balance 100 ml 2280 ml 1600 ml medications Current Medications Medications Dose Ordered Sig/Tamiko Route Start Time Stop Time Status Last Admin Dose Admin Amlodipine Besylate 5 mg DAILY PO 09/01/24 10:00 09/09/24 10:35 5 MG Atorvastatin Calcium 10 mg HS PO 09/01/24 22:00 09/09/24 23:02 10 MG Empaglifozin 10 mg DAILY PO 09/01/24 10:00 09/09/24 10:36 10 MG Gabapentin 300 mg TID PO 09/01/24 06:00 09/09/24 23:02 300 MG Diagnostic Test (Pha) 1 strip Q6HR 09/01/24 06:00 09/10/24 00:00 1 STRIP Insulin Human Regular Q6HR SC 09/01/24 06:00 09/07/24 23:59 3 UNITS Dextrose 50 ml UD PRN IV 09/01/24 00:30 Ondansetron HCl 4 mg Q4HP PRN IV 09/01/24 00:30 Piperacillin Sod/ Tazobactam Sod 100 ml @ 25 mls/hr Q8H IV 09/01/24 19:00 09/10/24 04:11 25 MLS/HR Aspirin 81 mg DAILY PO 09/02/24 10:00 09/09/24 10:36 81 MG Losartan Potassium 25 mg DAILY PO 09/02/24 10:00 09/09/24 10:35 25 MG Acetaminophen 650 mg BID PO 09/05/24 22:00 Ibuprofen 400 mg Q6HP PRN PO 09/05/24 13:30 Examination Patient lying in bed, in no acute distress General: Lucid, afebrile, mucosae are moist Cardiovascular: Normal S1 and S2. No murmurs, gallops or rubs Respiratory: Normal ventilation mechanics. Clear lung sounds on auscultation Abdomen: Soft, nontender, no organomegaly, normal bowel sounds MSK/skin: Mobilizes 4 limbs. Skin is dry and warm. Surgical site on right foot of 4th and 5th toe amputation with no fluctuating mass, does present erythema. Third and first toe of right foot under gauze, no active bleeding, no foul smell, surgical site clean. Presents weak pulses of right pedal and posterior tibial artery, rest of pulses within normal limits. Bilateral feet are warm to touch. Neurological: Oriented in 3 spheres. No motor no sensitive deficits. Pupils are isocoric and reactive laboratory and microbiology Laboratory Tests 09/08/24 03:00 09/06/24 05:13 Test 09/06/24 05:13 Range/Units Serum Glucose 93 74-106 mg/dL Microbiology Date/Time Source Procedure Growth Status 09/02/24 11:52 Foot Right Gram Stain - Final Complete 09/02/24 11:52 Foot Right Anaerobic Culture - Final Complete 09/02/24 11:52 Foot Right Aerobic Culture - Final Complete 08/31/24 20:03 Blood Blood Culture - Final NO GROWTH AFTER 5 DAYS OF INCUBATION. 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 Podiatry on board: Completed surgery on 09/02/2024, patient will need six weeks of IV antibiotics, awaiting results of surgical culture. Can weightbear as tolerated in postoperative shoe. We will obtain cultures from surgical sample Currently under empiric IV antibiotic (Zosyn, previously vancomycin) Obtain cultures blood and wound culture negative. Surgical culture presented coagulase negative Staphylococcus and diphtheroids PT on board volunteer services coordinator on board to evaluate SNF vs home health to complete IV antibiotics. # Cellulitis of right foot Currently under empiric IV antibiotic (Zosyn, previously vancomycin) Obtain cultures (blood and wound), negative at the moment, pending final result. # Diabetes - controlled (hemoglobin A1c 6.3%) On insulin sliding scale # Ruled out peripheral artery disease Completed lower limb ultrasound which ruled out PAD Patient is currently on atorvastatin and aspirin, we will continue home medication # Hypertension Continue home medication (losartan 25 mg p.o. daily) # Dyslipidemia Continue home medication (atorvastatin 10 mg p.o. daily) Goals of care discussed with patient for over 18 minutes: Full code status Discussed plan with Dr. Seay, patient and nurses: Currently patient is under adjusted IV antibiotic. Podiatry on board, completed surgery (incision and drainage) on 09/02/2024, surgical culture shows coagulase negative Staphylococcus and diphtheroids. Planning discharge to SNF to complete IV antibiotic, awaiting SNF approval Plan discussed with: Patient, Other (Nurses) My Orders My Orders Orders - LAW ZAMBRANO RESIDENT Procedure Category Date Status Time * Picc Line Consult CONS 09/09/24 Transmitted 06:28 Complete Blood Count LAB 09/10/24 Logged 04:00 Basic Metabolic Panel LAB 09/10/24 Logged 04:00 Dietary Evaluation Review Comments: 1. Change diet order to CCH0 75 gm/meal, High-Protein to meet est. needs 2. Continue ss insulin, frequent BG checks for glycemic control 3. Suggest oral nutrition supplements (Ensure HP BID, provides 160 kcal, 16 gm pro/carton) to optimize pts nutritional status 4. Ask CM to provide list of resources in pt's preferred geographic area to increase food access (food leal etc.) Expected Outcomes/Goals: Improved nutritional status, wound healing, weight maintenance LAW ZAMBRANO RESIDENT Sep 10, 2024 06:11
[2024-09-10 06:55] LABS: Anion Gap 7 (5-15); Carbon Dioxide 25 mmol/L (20-31); Potassium 3.8 mmol/L (3.5-5.1); Sodium 140 mmol/L (136-145)
[2024-09-10 06:56] LABS: Calcium 9.8 mg/dL (8.7-10.4)
[2024-09-10 07:01] LABS: BUN/Creatinine Ratio 18.1 (10.0-20.0); Blood Urea Nitrogen 19 mg/dL (9-23); Glucose 83 mg/dL (74-106)
[2024-09-10 07:07] LABS: Chloride 108 mmol/L (98-107)
[2024-09-10 07:12] LABS: Basophils # (auto) 0 10 ^3/uL (0-0.2); Basophils % (auto) 0.8 % (0.0-2.0); Eosinophils # (auto) 0.3 10 ^3/uL (0-0.8); Eosinophils % (auto) 4.2 % (0.0-7.0); Hematocrit 37.4 % (41.0-53.0); Hemoglobin 13.2 g/dL (13.5-17.5); Lymphocytes # (auto) 1.7 10 ^3/uL (0.4-5.4); Lymphocytes % (auto) 28.8 % (10.0-50.0); Mean Corpuscular Hemoglobin 30.7 pg (28.0-32.0); Mean Corpuscular Hgb Conc. 35.4 g/dL (32.0-36.0); Mean Corpuscular Volume 86.7 fL (80.0-100.0); Monocytes # (auto) 0.7 10 ^3/uL (0-1.3); Monocytes % (auto) 12.2 % (0.0-12.0); Neutrophils # (auto) 3.2 10 ^3/uL (1.6-8.6); Nucleated Red Blood Cells % 0.2 %; Platelet Count (auto) 203 10^3/uL (140-450); Red Blood Cells 4.32 10^6/uL (4.5-5.90); Red Cell Distribution Width 14.1 % (11.8-14.3)
[2024-09-10] MEDS ORDERED: AUG875T PO (12:05)
--- NOTE | 2024-09-10 13:33 | DVHDSRES ---
Discharge Summary Date of Admission Resident Creating Document: LAW ZAMBRANO RESIDENT Sep 01, 2024 at 00:23 Date of Discharge: Sep 10, 2024 Labs/Diagnostic Data: Laboratory Results Test 09/10/24 05:20 09/09/24 18:20 09/09/24 08:20 09/08/24 04:57 White Blood Count 6.0 10^3/uL (4.4-10.8) Red Blood Count 4.32 10^6/uL (4.5-5.90) Hemoglobin 13.2 g/dL (13.5-17.5) Hematocrit 37.4 % (41.0-53.0) Mean Corpuscular Volume 86.7 fL (80.0-100.0) Mean Corpuscular Hemoglobin 30.7 pg (28.0-32.0) Mean Corpuscular Hemoglobin Concent 35.4 g/dL (32.0-36.0) Red Cell Distribution Width 14.1 % (11.8-14.3) Platelet Count 203 10^3/uL (140-450) Mean Platelet Volume 7.0 fL (6.9-10.8) Neutrophils (%) (Auto) 54.0 % (37.0-80.0) Lymphocytes (%) (Auto) 28.8 % (10.0-50.0) Monocytes (%) (Auto) 12.2 % (0.0-12.0) Eosinophils (%) (Auto) 4.2 % (0.0-7.0) Basophils (%) (Auto) 0.8 % (0.0-2.0) Neutrophils # (Auto) 3.2 10 ^3/uL (1.6-8.6) Lymphocytes # (Auto) 1.7 10 ^3/uL (0.4-5.4) Monocytes # (Auto) 0.7 10 ^3/uL (0-1.3) Eosinophils # (Auto) 0.3 10 ^3/uL (0-0.8) Basophils # (Auto) 0 10 ^3/uL (0-0.2) Nucleated Red Blood Cells 0.2 % Sodium Level 140 mmol/L (136-145) Potassium Level 3.8 mmol/L (3.5-5.1) Chloride Level 108 mmol/L (98-107) Carbon Dioxide Level 25 mmol/L (20-31) Anion Gap 7 (5-15) Blood Urea Nitrogen 19 mg/dL (9-23) Creatinine 1.05 mg/dL (0.700-1.30) Glomerular Filtration Rate Calc 84 mL/min (>90) BUN/Creatinine Ratio 18.1 (10.0-20.0) Serum Glucose 83 mg/dL (74-106) Calcium Level 9.8 mg/dL (8.7-10.4) POC Glucose 147 mg/dl (70-106) Prothrombin Time 11.4 sec (9.3-11.8) Prothrombin Time INR 1.08 (0.9-1.15) Activated Partial Thromboplast Time 27.1 SEC (24.5-34.5) Vancomycin Level Trough 8.5 ug/mL (5-10) Test 09/06/24 05:13 09/05/24 10:28 09/03/24 04:39 09/01/24 15:17 Random Vancomycin Level 11.1 ug/mL (5-10) Vancomycin Level Peak 23.0 ug/mL (18-26) Phosphorus Level 3.1 mg/dL (2.4-5.1) Magnesium Level 2.1 mg/dL (1.6-2.6) Creatine Kinase 100 U/L (46-171) Urine Color Light-yellow (Yellow) Urine Clarity Clear (Clear) Urine pH 5.0 (5.0-9.0) Urine Specific [place] 1.029 (1.001-1.035) Urine Protein Negative (Negative) Urine Ketones Negative (Negative) Urine Blood Negative /uL (Negative) Urine Nitrite Negative (Negative) Urine Bilirubin Negative (Negative) Urine Urobilinogen Normal mg/dL (Negative) Urine Leukocyte Esterase Negative /uL (Negative) Urine RBC 1 /hpf (0 - 3) Urine Microscopic WBC < 1 /HPF (0-3) Urine Squamous Epithelial Cells None seen /hpf (<5) Urine Bacteria None seen /hpf (None Seen) Urine Glucose 4+ mg/dL (Normal) Urine Opiates Screen Neg (NEGATIVE) Urine Fentanyl Screen Neg (NEGATIVE) Urine Barbiturates Screen Neg (NEGATIVE) Urine Phencyclidine Screen Neg (NEGATIVE) Urine Amphetamines Screen Neg (NEGATIVE) Urine Benzodiazepines Screen Neg (NEGATIVE) Urine Cocaine Screen Neg (NEGATIVE) Urine Cannabinoids Screen Neg (NEGATIVE) Test 09/01/24 08:26 08/31/24 20:03 Hemoglobin A1c 6.3 % A1C (<5.7) Lactic Acid Level 1.3 mmol/L (0.4-2.0) Total Bilirubin 0.5 mg/dL (0.2-1.0) Aspartate Amino Transferase (AST) 13 U/L (13-40) Alanine Aminotransferase (ALT) 16 U/L (7-40) Alkaline Phosphatase 79 U/L (46-116) Total Protein 6.9 g/dL (5.7-8.2) Albumin 4.3 g/dL (3.2-4.8) Thyroid Stimulating Hormone (TSH) 1.59 uIU/mL (0.55-4.78) Erythrocyte Sedimentation Rate 34 mm/hr (0-20) Other Laboratory Tests 09/10/24 05:20 Brief Hx & Hospital Course: Salvador Jean-Baptiste 54-year-old male patient who presents to the ED for evaluation of right foot nonhealing wound which has occurred approximately three months ago, getting worse, associating with swelling and pain. Patient reports right foot 5th and 4th toe amputation approximately three months ago. Denies fever, chills, syncope, palpitation, trauma, nausea, vomiting, diarrhea, constipation, dysuria, recent travel, sick contacts and motor or sensory deficits. Past Medical History: Hypertension, dyslipidemia, diabetes mellitus, diabetic foot status post amputation of right 5th and 4th toe Surgical history: Right foot 4th and 5th toe amputation Family History: Noncontributory Social history: Patient is currently homeless, has no next of kin and no [id number]. Denies current tobacco, alcohol and other drug abuse Allergies: Denies Home medication: Empagliflozin 10 mg p.o. daily, aspirin 81 mg p.o. daily, atorvastatin 10 mg p.o. daily, losartan 25 mg p.o. daily Brief hospital course: Diabetic foot complicated osteomyelitis of 1st and 3rd right toe status post incision and drainage associated with cellulitis of right foot, responding to IV fluids, IV antibiotics (vancomycin and Zosyn) and wound care. On admission completed CT and MRI of right foot which evidence osteomyelitis, obtained lower limb duplex ultrasound which ruled out peripheral artery disease. Obtained results from blood and wound culture which were negative, , surgical culture obtained on 09/02/2024 showed coagulase negative staph and diphteroidsn. Evaluated by Podiatry specialist who completed procedure and indicated weight bearing postop shoe, IV antibiotics for six weeks since surgical procedure, and follow up as outpatient. Patient evaluated by social media manager due to living situation (patient lives in a motel, has no family), evaluating safe discharge to SNF, so as to continue with IV antibiotics and PT sessions, but patient did not want to go to SNF. Patient decided to leave the hospital with p.o. antibiotics. Patient hemodynamically stable, asymptomatic, in condition to be discharged home with p.o. antibiotics (Augmentin). Was granted under optimal medical therapy, gave advice on healthy lifestyle habits, and follow up as outpatient with PCP, Infectious Disease and brokerage clerk. DIAGNOSIS # Diabetic foot complicated with osteomyelitis of 1st and 3rd right toe - status post incision and drainage # Cellulitis of right foot # Diabetes - controlled (hemoglobin A1c 6.3%) # Ruled out peripheral artery disease # Hypertension # Dyslipidemia Goals of care discussed with patient for over 18 minutes: Full code status Discussed plan with Dr. Seay, patient and nurses. Examination Patient lying in bed, in no acute distress General: Lucid, afebrile, mucosae are moist Cardiovascular: Normal S1 and S2. No murmurs, gallops or rubs Respiratory: Normal ventilation mechanics. Clear lung sounds on auscultation Abdomen: Soft, nontender, no organomegaly, normal bowel sounds MSK/skin: Mobilizes 4 limbs. Skin is dry and warm. Surgical site on right foot of 4th and 5th toe amputation with no fluctuating mass, does present erythema. Third and first toe of right foot under gauze, no active bleeding, no foul smell, surgical site clean. Presents weak pulses of right pedal and posterior tibial artery, rest of pulses within normal limits. Bilateral feet are warm to touch. Neurological: Oriented in 3 spheres. No motor no sensitive deficits. Pupils are isocoric and reactive Operations or Procedures EXAM: CT CT R FOOT WO CONTRAST INDICATION: WOUND EXAM DATE: 08/31/2024 08:19 PM COMPARISON: None TECHNIQUE: Multiple axial CT images of the right foot were obtained using bone algorithm. Axial and coronal reformatting was done. Bone and soft tissue windows were reviewed. Radiation Dose Information: CT Dose: CTDI volume is 7.75 mGy. Dose-length product is 321.82 mGy*cm Findings/Impression: Limited evaluation given noncontrast technique. There is no evidence of an acute fracture, dislocation, blastic, or lytic lesions. Erosion of the 1st distal phalanx and focus of air in the 3rd PIP joint. Findings are nonspecific but could reflect an infectious etiology. Recommend a contrast enhanced MRI or nuclear medicine WBC scan for further evaluation. Transmetatarsectomy of the 4th and 5th digits. No radiopaque foreign bodies. ATED BY: BRITTANIE PEREZ DO DICTATED DATE/TIME: 08/31/24 2132 Bilateral Lower Extremity Arterial Duplex Date: 09/01/2024 10:09 AM Clinical History: Rule out PAD Comparison: None Findings: Duplex Doppler evaluation including color Doppler and spectral/pulsed waveform analysis of the lower extremity arteries was performed. Velocities and waveforms within normal limits. IMPRESSION: There is no evidence for peripheral vascular insufficiency in the right lower extremity. There is no evidence for peripheral vascular insufficiency in the left lower extremity. No significant focal stenosis is identified. END IMPRESSION: ATED BY: ALEKSANDR BRICE MD DICTATED DATE/TIME: 09/01/24 1205 CLINICAL HISTORY: Rule out osteomyelitis. Wound. Infection. TECHNIQUE: Multi sequence multi planar MRI images of the right midfoot and forefoot were obtained without IV contrast. COMPARISON: CT CT R FOOT WO CONTRAST on DOS: 08/31/24 FINDINGS: Postsurgical changes of prior amputations of the 4th and 5th metatarsals. Prominent subcutaneous edema in the great toe, suspected cellulitis in the appropriate clinical setting. There is marrow edema involving the entire distal phalanx of the great toe with bony destructive changes, suspected osteomyelitis in the setting of overlying soft tissue infection. No marrow signal abnormality seen in the proximal phalanx of the great toe. No organized fluid collection identified to suggest abscess, although limited evaluation for abscess on noncontrast enhanced exam. There are chronic appearing bony destructive changes of the 3rd metatarsal head and neck region and base of the proximal phalanx of the 3rd digit with hammertoe deformity of the 3rd digit. There is a wound at the plantar aspect of the 3rd MTP joint without evidence for adjacent osteomyelitis. There is a wound at the dorsal aspect of the 3rd digit PIP joint with associated subcutaneous edema, likely cellulitis. There is marrow edema in the distal aspect of the proximal phalanx, suspected osteomyelitis. Possible marrow edema in the base of the middle phalanx of the 3rd digit, for which osteomyelitis is not excluded. Moderate arthritic changes of the 2nd MTP joint. IMPRESSION: 1. Suspected osteomyelitis in the distal phalanx of the great toe as described above. 2. Suspected osteomyelitis in the distal aspect of the proximal phalanx of the 3rd digit and possible osteomyelitis of the base of the middle phalanx of the 3rd digit. 3. Soft tissue inflammatory changes seen of the great toe and 3rd digit as described above, likely cellulitis, without visualized focal fluid collection identified to suggest abscess, although limited evaluation for abscess noncontrast enhanced exam. 4. Additional findings as detailed above. ATED BY: CARLOS MANUEL NIETO DO DICTATED DATE/TIME: 09/01/24 1213 Condition at Discharge: Good Final Diagnosis/Problems List # Diabetic foot complicated with osteomyelitis of 1st and 3rd right toe - status post incision and drainage # Cellulitis of right foot # Diabetes - controlled (hemoglobin A1c 6.3%) # Ruled out peripheral artery disease # Hypertension # Dyslipidemia Discharge Disposition: Home SNF Discharge Will this Physician continue t: No Discharge Instruct/Medications Diet: Consistent carbohydrate, Cardiac 2g Na,low cholest Activity: No Restrictions, As Tolerated Follow Up/Referral: PCP Podiatry Infectious disease Medications: Augmentin p.o. for six weeks (until 10/14/2024) Rest of home medication Discharge Statement: "Patient was advised to return to the ER or call 911 if any headaches, dizziness, shortness of breath, chest pain, abdominal pain, bleeding, fevers, or worsening of medical condition. Patient was counseled about treatment plan, medications, possible side effects, patientverbalized understanding. All questions were answered to the best of my ability. This discharge took greater then 30 minutes in planning, reviewing documentation, counseling the patient, and discussing with other team members." ASSESSMENT ASSESSMENT Assessment Diabetic foot complicated with osteomyelitis status postop LAW ZAMBRANO RESIDENT Sep 10, 2024 13:33
[2024-09-11] MEDS ORDERED: AUG875T PO (01:02)
== END 2024-09-10 18:10 | disposition home or self-care (01) | DRG 317 ==
LOC: ER 19:02 → OVERFLOW 09-01 00:23 → CENTRAL 09-01 23:51
PROVIDERS: ADMIT Student in an Organized Health Care Education/Training Program; ATTEND Student in an Organized Health Care Education/Training Program
PROC: 0QBQ0ZX Excision of Right Toe Phalanx, Open Approach, Diagnostic (ICD-10-PCS; 2024-09-02)
PROC: 0Q9Q0ZZ Drainage of Right Toe Phalanx, Open Approach (ICD-10-PCS; 2024-09-02)
PROC: 0L9V0ZZ Drainage of Right Foot Tendon, Open Approach (ICD-10-PCS; 2024-09-02)
PROC: 0QBQ0ZX Excision of Right Toe Phalanx, Open Approach, Diagnostic (ICD-10-PCS; 2024-09-02)
PROC: 0Q9Q0ZZ Drainage of Right Toe Phalanx, Open Approach (ICD-10-PCS; 2024-09-02)
PROC: 0L9V0ZZ Drainage of Right Foot Tendon, Open Approach (ICD-10-PCS; principal; 2024-09-02 11:07)
DX: E11.69 Type 2 diabetes mellitus with other specified complication (principal); M86.8X7 Other osteomyelitis, ankle and foot; E11.621 Type 2 diabetes mellitus with foot ulcer; L03.115 Cellulitis of right lower limb; L97.519 Non-pressure chronic ulcer of other part of right foot with unspecified severity; E11.65 Type 2 diabetes mellitus with hyperglycemia; L02.611 Cutaneous abscess of right foot; E78.5 Hyperlipidemia, unspecified; I10 Essential (primary) hypertension; E66.9 Obesity, unspecified; Z89.421 Acquired absence of other right toe(s); Z68.33 Body mass index [BMI] 33.0-33.9, adult; Z79.82 Long term (current) use of aspirin; Z79.84 Long term (current) use of oral hypoglycemic drugs; Z79.899 Other long term (current) drug therapy
CPT/HCPCS: 36415; 73700; 73718; 80048; 80053; 80202; 80307; 81001; 82550; 82565; 82962; 83036; 83605; 83735; 84100; 84443; 85025; 85610; 85652; 85730; 87040; 87070; 87075; 87205; 93925; 96365; 97110; 97116; 97163; G0378; J1100; J1815; J2003; J2250; J2405; J2543; J2704; J3490

== ENCOUNTER 2024-09-11 | Emergency (ER) | payer OTHER ==
[~2024-09-11] VITALS: Ht 185.4 cm; Wt 106.0 kg
[~2024-09-11] MED LIST: ACET-1882 PO; AML5T PO; ASPI-325 PO; ATOR20TA50 PO; AUG875T PO; EMPA1TAB PO; GABA-1250 PO; LOS25T PO
[2024-09-11 00:28] VITALS: BP 112/71; PULSE 67; RESP 18; TEMP 98.9; O2SAT 94
--- NOTE | 2024-09-11 01:00 | ED.PDOC ---
History of Present Illness HPI Comments PT WAS DISCHARGED TODAY HIS PRESCRIPTIONS SENT TO A PHARMACY THAT IS CLOSED THE WEEK END. HE NEEDS TO BE RE-SENT RO APHARMACY THAT IS OPEN Chief Complaint: Medical Clearance Time Seen by MD: 00:10 Reviewed Notes: Nurses Notes, Medications, Allergies Allergies: Coded Allergies: NO KNOWN ALLERGIES (Unverified , 08/31/24) Home Meds Active Scripts Amoxicillin & Pot Clavulanate (AUGMENTIN TABLET) 875 Mg Tb, 1 TAB PO BID for 45 Days, #90 TAB Prov:JOHN VIEIRA [employer] 09/11/24 Amoxicillin & Pot Clavulanate (AUGMENTIN TABLET) 875 Mg Tb, 875 MG PO BID for 45 Days, #90 TAB Prov:LAW Z[facility]BRANO [facility] 09/10/24 Losartan Potassium (Losartan Potassium) 25 Mg Tab, 25 MG PO DAILY for 30 Days, #30 TAB Prov:LAW ZAMBRANO [facility] 09/06/24 Gabapentin (Gabapentin) 300 Mg Cap, 300 MG PO TID for 30 Days, #90 CAP Prov:LAW ZAMBRANO [facility] 09/06/24 Empagliflozin (Jardiance) 10 Mg Tab, 10 MG PO DAILY for 30 Days, #30 TAB Prov:LAW ZAMBRANO [facility] 09/06/24 Atorvastatin Calcium (ATORVASTATIN CALCIUM) 20 Mg Tab, 10 MG PO HS for 30 Days, #15 TAB Prov:LAW ZAMBRANO [facility] 09/06/24 Aspirin (Aspirin Low Dose) 81 Mg Tab, 81 MG PO DAILY for 30 Days, #30 TAB Prov:LAW ZAMBRANO [facility] 09/06/24 Amlodipine Besylate (NORVASC TABLET) 5 Mg Tb, 5 MG PO DAILY for 30 Days, #30 TAB Prov:LAW ZAMBRANO [facility] 09/06/24 Acetaminophen (Acetaminophen) 325 Mg Tab, 650 MG PO Q6HP PRN for 10 Days, #80 TAB Prov:LAW ZAMBRANO [facility] 09/06/24 Information Source: Patient Mode of Arrival: Ambulatory Past Medical History PAST MEDICAL HISTORY: DM, High Lipids, HTN Surgical History: Denies all surgeries Family History Family History: Unknown Social History Smoker: Non-Smoker Alcohol: Denies ETOH Use Drugs: Denies Drug Use Lives In: Home Constitutional: denies: chills, diaphoresis, fatigue, fever, malaise, sweats, weakness, others EENTM: reports: nasal discharge; denies: blurred vision, double vision, ear bleeding, ear discharge, ear drainage, ear pain, ear ringing, eye pain, eye redness, hearing loss, mouth pain, mouth swelling, nose bleeding, nose congestion, nose pain, photophobia, tearing, throat pain, throat swelling, voice changes, others Respiratory: reports: cough; denies: hemoptysis, orthopnea, SOB at rest, sh ortness of breath, SOB with excertion, stridor, wheezing, others Cardiovascular: denies: chest pain, dizzy spells, diaphoresis, Dyspnea on exertion, edema, irregular heart beat, left arm pain, lightheadedness, palpitations, PND, syncope, others Gastrointestinal: denies: abdomen distended, abdominal pain, blood streaked bowels, constipated, diarrhea, dysphagia, difficulty swallowing, hematemesis, melena, nausea, poor appetite, poor fluid intake, rectal bleeding, rectal pain, vomiting, others Genitourinary: denies: burning, dysuria, flank pain, frequency, hematuria, inc ontinence, penile discharge, penile sore, pain, testicle pain, testicle swelling, urgency, others Neurological: denies: dizziness, fainting, headache, left sided numbness, left sided weakness, numbness, paresthesia, pre-existing deficit, right sided numbness, right sided weakness, seizure, speech problems, tingling, tremors, weakness, others Musculoskeletal: denies: back pain, gout, joint pain, joint swelling, muscle pain, muscle stiffness, neck pain, others Integumetry: denies: bruises, change in color, change in hair/nails, dryness, laceration, lesions, lumps, rash, wounds, others Allergic/Immunocompromised: denies: Difficulty Healing, Frequent Infections, Hives, Itching, others Hematologic/Lymphatic: denies: anemia, blood clots, easy bleeding, easy bruising, swollen glands, others Endocrine: denies: excessive hunger, excessive sweating, excessive thirst, excessive urination, flushing, intolerance to cold, intolerance to heat, unexplained weight gain, unexplained weight loss, others Psychiatric: denies: anxiety, bipolar disorder, depression, hopeless, panic disorder, schizophrenia, sleepless, suicidal, others Physical Exam General Appearance: No Apparent Distress, Normal HEENT: Normal ENT Inspection, Pharynx Normal, TMs Normal Neck: Full Range of Motion, Non-Tender, Normal, Normal Inspection Respiratory: Chest Non-Tender, Lungs Clear, No Accessory Muscle Use, No Respiratory Distress, Normal Breath Sounds Cardiovascular: No Edema, No JVD, No Murmur, No Gallop, Normal Peripheral Pulses, Regular Rate/Rhythm Breast Exam: Deferred Gastrointestinal: No Organomegaly, Non Tender, No Pulsatile Mass, Normal Bowel Sounds, Soft Genitalia: Deferred Pelvic: Deferred Rectal: Deferred Extremities: No calf tenderness, Normal capillary refill, Normal inspection, Normal range of motion, Non-tender, No pedal edema Musculoskeletal : Apperance: Normal Neurologic: Alert, resident buyer II-XII nml as Tested, No Motor Deficits, Normal Affect, Normal Mood, No Sensory Deficits Cerebellar Function: Normal Reflexes: Normal Skin: Dry, Normal Color, Warm Lymphatic: No Adenopathy Was a procedure done? Was a procedure done?: No Differential Dx Considerations may include: Pneumonia X-Ray, Labs, Meds, VS Vital Signs Date Time Temp Pulse Resp B/P (MAP) Pulse Ox O2 Delivery O2 Flow Rate FiO2 09/11/24 00:28 98.9 67 18 112/71 (85) 94 98.9 09/11/24 00:28 67 18 94 Room Air 09/11/24 00:20 98.9 67 20 112/71 (85) 94 X-Ray, Labs, Meds, VS Comment Medication refilled script to the pharmacy take medication as prescribed side effects discussed follow up with [facility] two days ER return precautions given mother indicates understanding and agrees with discharge plan of care. Time of 1ST Reevaluation: 00:47 Reevaluation 1ST: Improved Patient Education/Counseling: Other Family Education/Counseling: Diagnosis, Treatment, Prognosis, Need For Follow Up Departure 1 Departure Time of Disposition: 00:47 Impression: Primary Impression: Encounter for medication refill Disposition: HOME / SELF CARE / HOMELESS Condition: Stable e-Prescriptions Amoxicillin & Pot Clavulanate (AUGMENTIN TABLET) 875 Mg Tb 1 TAB PO BID for 45 Days, #90 TAB Prov: JOHN VIEIRA 09/11/24 Discharged With: Self Critical Care Note Critical Care Time?: No Stability Stability form required: No JOHN VIEIRA Sep 11, 2024 01:00
[2024-09-11] MEDS ORDERED: AUG875T PO (01:02)
== END 2024-09-11 01:13 | disposition home or self-care (01) ==
LOC: ER
DX: R05.9 Cough, unspecified (principal); E11.9 Type 2 diabetes mellitus without complications; I10 Essential (primary) hypertension; Z76.0 Encounter for issue of repeat prescription; E78.5 Hyperlipidemia, unspecified; Z79.82 Long term (current) use of aspirin; Z79.84 Long term (current) use of oral hypoglycemic drugs; Z79.899 Other long term (current) drug therapy